=== PATIENT | female | born 1960 | race Caucasian/White ===

== ENCOUNTER 2016-11-14 20:40 | Emergency (ER) | payer BC, OTHER ==
[~2016-11-14] VITALS: Ht 165.1 cm; Wt 75.7 kg
[~2016-11-14 20:40] MED LIST: GLIP-115 PO; INSUINJ IJ; LISI2.5T47 PO; METF-489 PO; METO-281 PO; METO25TA3 PO; NITR400A5 TL; OMEP20CA5 OR; OXYB5TAB62 PO; REGULAR INSULIN; SIMV-8 PO; [UNRECOGNIZED DRUG - CODE] RE
[2016-11-14 21:25] LABS: Basophils # (auto) 0.1 uL; Eosinophils # (auto) 0.2 uL; Eosinophils % (auto) 2.6 % (0.0-7.0); Hematocrit 44.2 % (36.0-46.0); Hemoglobin 14.6 g/dL (12.2-16.2); Lymphocytes # (auto) 2.6 uL; Lymphocytes % (auto) 37.1 % (10.0-50.0); Mean Corpuscular Hemoglobin 29.6 pg (28.0-32.0); Mean Corpuscular Hgb Conc. 33.1 g/dL (32.0-36.0); Mean Corpuscular Volume 89.3 fL (80.0-100.0); Mean Platelet Volume 8.7 fL (7.4-10.4); Monocytes # (auto) 0.7 uL; Neutrophils # (auto) 3.4 uL; Neutrophils % (auto) 49.3 % (37.0-80.0); Platelet Count (auto) 355 10^3/uL (140-450); Red Cell Distribution Width 13.6 % (11.6-16.0); White Blood Cell 6.9 10^3/uL (4.4-10.8)
[2016-11-14 21:37] LABS: INR 0.95 (0.9-1.15); Partial Thromboplastin Time 24.2 sec (22.64-33.71); Prothrombin Time 10.3 sec (9.37-12.3)
[2016-11-14 21:50] LABS: Albumin 3.9 g/dL (3.4-5.0); BUN/Creatinine Ratio 22.1; Calcium 9.7 mg/dL (8.5-10.1); Potassium 4.4 mmol/L (3.5-5.1)
[2016-11-14 21:52] LABS: Bilirubin, Total 0.2 mg/dL (0.2-1.0); Total Protein 8.9 g/dL (6.4-8.2)
[2016-11-15 01:06] VITALS: BP 135/70
== END 2016-11-15 01:45 | disposition home or self-care (01) ==
LOC: ER 20:43
DX: S00.93XA Contusion of unspecified part of head, initial encounter (principal); I48.91 Unspecified atrial fibrillation; I13.0 Hypertensive heart and chronic kidney disease with heart failure and stage 1 through stage 4 chronic kidney disease, or unspecified chronic kidney disease; N18.9 Chronic kidney disease, unspecified; I50.9 Heart failure, unspecified; E78.5 Hyperlipidemia, unspecified; I25.2 Old myocardial infarction; Z86.73 Personal history of transient ischemic attack (TIA), and cerebral infarction without residual deficits; Z87.442 Personal history of urinary calculi; Z98.51 Tubal ligation status; Z95.1 Presence of aortocoronary bypass graft; Z95.0 Presence of cardiac pacemaker; Z98.61 Coronary angioplasty status; Z88.1 Allergy status to other antibiotic agents; Z88.6 Allergy status to analgesic agent; Z79.01 Long term (current) use of anticoagulants; W19.XXXA Unspecified fall, initial encounter; Y93.89 Activity, other specified; Y99.8 Other external cause status; Y92.89 Other specified places as the place of occurrence of the external cause
CPT/HCPCS: 36415; 70450; 80053; 85025; 85610; 85730; 93005

== ENCOUNTER 2018-05-19 22:44 | Emergency (ER) | payer BC, OTHER ==
[~2018-05-19] VITALS: Ht 165.1 cm; Wt 72.6 kg
[~2018-05-19 22:44] MED LIST changes: -METO25TA3 PO; +METO25TA4 PO; -OMEP20CA5 OR; +OMEP20CA74 OR; +OXYB5TAB24 PO; -OXYB5TAB62 PO
[2018-05-19] MEDS ORDERED: DEXTROSE (50%) 50ML SYRG IV ONE (23:00)
[2018-05-20 00:28] LABS: Basophils # (auto) 0.1 uL; Basophils % (auto) 0.7 % (0.0-2.0); Eosinophils # (auto) 0.1 uL; Eosinophils % (auto) 1.9 % (0.0-7.0); Hematocrit 42.7 % (36.0-46.0); Hemoglobin 13.8 g/dL (12.2-16.2); Lymphocytes # (auto) 1.6 uL; Lymphocytes % (auto) 20.7 % (10.0-50.0); Mean Corpuscular Hemoglobin 29.6 pg (28.0-32.0); Mean Corpuscular Hgb Conc. 32.3 g/dL (32.0-36.0); Mean Corpuscular Volume 91.6 fL (80.0-100.0); Monocytes # (auto) 0.7 uL; Monocytes % (auto) 8.6 % (0.0-12.0); Neutrophils # (auto) 5.2 uL; Neutrophils % (auto) 68.1 % (37.0-80.0); Nucleated Red Blood Cells % 0.1 %; Platelet Count (auto) 287 10^3/uL (140-450); Red Blood Cells 4.66 10^6/uL (4.0-5.20); Red Cell Distribution Width 13.2 % (11.8-14.3); White Blood Cell 7.6 10^3/uL (4.4-10.8)
[2018-05-20 00:46] LABS: Albumin 3.5 g/dL (3.4-5.0); BUN/Creatinine Ratio 20.8; Calcium 9.2 mg/dL (8.5-10.1); Potassium 3.5 mmol/L (3.5-5.1)
[2018-05-20 00:49] LABS: Bilirubin, Total 0.2 mg/dL (0.2-1.0); Total Protein 8.2 g/dL (6.4-8.2)
[2018-05-20 01:58] VITALS: BP 143/71
[2018-05-20 04:20] LABS: Urine Bacteria NONE SEEN /hpf (None Seen); Urine Blood Negative /uL (Negative); Urine Mucus FEW (None Seen); Urine Specific Gravity 1.022 (1.001-1.035); Urine WBC 1 /hpf (0 - 5)
== END 2018-05-20 03:08 | disposition home or self-care (01) ==
LOC: ER 22:44
DX: E11.649 Type 2 diabetes mellitus with hypoglycemia without coma (principal); I12.9 Hypertensive chronic kidney disease with stage 1 through stage 4 chronic kidney disease, or unspecified chronic kidney disease; E11.22 Type 2 diabetes mellitus with diabetic chronic kidney disease; N18.9 Chronic kidney disease, unspecified; I25.2 Old myocardial infarction; I48.91 Unspecified atrial fibrillation; Z86.73 Personal history of transient ischemic attack (TIA), and cerebral infarction without residual deficits; Z95.0 Presence of cardiac pacemaker; Z98.61 Coronary angioplasty status; Z79.4 Long term (current) use of insulin; Z88.6 Allergy status to analgesic agent; Z88.1 Allergy status to other antibiotic agents; Z98.51 Tubal ligation status
CPT/HCPCS: 36415; 71045; 80053; 81001; 82962; 85025; 96374

== ENCOUNTER 2018-07-12 11:15 | Inpatient (IN) | payer BC ==
[~2018-07-12] VITALS: Ht 167.6 cm; Wt 68.4 kg
[2018-07-12] MEDS ORDERED: SODIUM CHLORIDE 0.9% 1,000 ML IV ONE (11:19)
[2018-07-12] MEDS ORDERED: ONDANSETRON HCL 4 MG/2 ML VIAL IV ONE (11:30)
[2018-07-12] MEDS ORDERED: InsuLIN R (HUMAN) 100 UNITS in SODIUM CHL 0.9% 99 ML IV SCH ×2 (11:36→15:32)
[2018-07-12] MEDS ORDERED: DEXTROSE (50%) 50ML SYRG IV PRN ×3 (11:45→21:00)
[2018-07-12 12:11] LABS: Basophils # (auto) 0 uL; Eosinophils # (auto) 0 uL; Hemoglobin 15.6 g/dL (12.2-16.2); Lymphocytes # (auto) 0.9 uL; Monocytes # (auto) 0.7 uL; Nucleated Red Blood Cells % 0.1 %
[2018-07-12 12:13] LABS: Basophils % (auto) 0.2 % (0.0-2.0); Lymphocytes % (auto) 8.9 % (10.0-50.0); Mean Corpuscular Hgb Conc. 30.1 g/dL (32.0-36.0); Mean Corpuscular Volume 99.9 fL (80.0-100.0); Monocytes % (auto) 7.2 % (0.0-12.0); Neutrophils # (auto) 8.5 uL; Neutrophils % (auto) 83.7 % (37.0-80.0); Platelet Count (auto) 353 10^3/uL (140-450); Red Cell Distribution Width 14.6 % (11.8-14.3); White Blood Cell 10.1 10^3/uL (4.4-10.8)
[2018-07-12 12:29] LABS: Alanine Aminotransferase 47 U/L (13-56); Albumin 3.3 g/dL (3.4-5.0); Anion Gap 32 (5-15); Aspartate Aminotransferase 73 U/L (15-37); Blood Urea Nitrogen 49 mg/dL (7-18); Calcium 8.6 mg/dL (8.5-10.1); Chloride 94 mmol/L (98-107); GFR African American 32 mL/min; GFR Non-African American 27 mL/min; Magnesium 2.8 mg/dL (1.6-2.6); Potassium 5.1 mmol/L (3.5-5.1); Sodium 131 mmol/L (136-145)
[2018-07-12] MEDS: ACCU-CHEK COMFORT CURVE STRIP VI SCH ×5 (12:30→19:30)
[2018-07-12 12:32] LABS: Lactic Acid w/Reflex 2.4 mmol/L (0.4-2.0)
[2018-07-12 12:37] LABS: Alkaline Phosphatase 182 U/L (45-117); Bilirubin, Total 0.4 mg/dL (0.2-1.0); Total Protein 8.6 g/dL (6.4-8.2)
[2018-07-12 12:50] LABS: Urine WBC None Seen /hpf (0 - 5)
[2018-07-12 12:57] LABS: Carbon Dioxide 5 mmol/L (21-32); Glucose 698 mg/dL (74-106)
[2018-07-12 12:58] LABS: Urine Bacteria NONE SEEN /hpf (None Seen); Urine Blood Negative /uL (Negative); Urine Specific Gravity 1.021 (1.001-1.035)
[2018-07-12] MEDS: SODIUM CHLORIDE 0.9% 2,000 ML IV ONE ×2 (13:15→14:58)
[2018-07-12] MEDS ORDERED: LORazepam 0.5 MG TAB PO PRN (15:45)
[2018-07-12] MEDS ORDERED: MORPHINE SULFATE 10 MG/ML INJ 1ML SDV IV PRN ×2 (15:45)
[2018-07-12] MEDS ORDERED: ACETAMINOPHEN 500 MG TAB PO PRN (15:45)
[2018-07-12] MEDS ORDERED: NITROGLYCERIN 0.4 MG SL TAB SL PRN (15:45)
[2018-07-12] MEDS ORDERED: TEMAZEPAM 15 MG CAP PO PRN (15:45)
[2018-07-12] MEDS: INSULIN LANTUS (GLARGINE) 1 /0.01ml (100units/ml) SC SCH (16:11)
[2018-07-12] MEDS: SODIUM CHLORIDE 0.9% 1,000 ML IV SCH ×3 (16:15→21:15)
[2018-07-12 16:20] LABS: Calcium 8.1 mg/dL (8.5-10.1); Potassium 4.1 mmol/L (3.5-5.1)
[2018-07-12] MEDS ORDERED: SODIUM CHLORIDE 0.9% 1,000 ML IV SCH ×2 (19:32→21:32)
[2018-07-12] MEDS: PROMETHAZINE HCL 25 MG/ML 1ML IV PRN (19:40)
[2018-07-12] MEDS ORDERED: LEVOFLOXACIN 500MG 100 ML IV ONE (20:00)
[2018-07-12] MEDS: metroNIDAZOLE 500MG/100ML 100 ML IV SCH (22:36)
[2018-07-12 22:49] VITALS: BP 124/64
--- NOTE | 2018-07-12 23:00 | NUR ---
Telemetry admit from ER [facility] admitted to Telemetry unit after SBAR received. Patient oriented to ESTEBAN HARDY, RN primary RN, unit, room, bed, and unit policies regarding patient care and visiting hours. bed locked, low and 2x rails up. pt oriented to call light and is within reach. Patient now on continuous telemetry monitoring, tele box #38 and telemetry reading on arrival to unit is normal sinus rhythm at 85 bpm. Patient on room air with 99% O2 SATURATION. pt denied any pain. no s/s distress noted or expressed. weighed by bedscale and encouraged to call if they need something. All questions and concerns addressed, patient verbalized understanding. will continue to monitor.
[2018-07-12 23:13] VITALS: BP 124/64
[2018-07-13] MEDS: InsuLIN REG 1unit/0.01ml Soln (100units/ml) SC SCH ×6 (00:33→20:00)
[2018-07-13] MEDS: SODIUM CHLORIDE 0.9% 1,000 ML IV SCH ×3 (03:55→20:05)
[2018-07-13] MEDS: ACCU-CHEK COMFORT CURVE STRIP VI SCH ×6 (04:00→20:04)
[2018-07-13 05:36] VITALS: BP 111/58
[2018-07-13 06:11] LABS: Amylase 128 U/L (25-115); Lipase 236 U/L (73-393)
[2018-07-13] MEDS: metroNIDAZOLE 500MG/100ML 100 ML IV SCH (06:13)
[2018-07-13 08:00] VITALS: BP 125/61
[2018-07-13 08:25] VITALS: BP 125/61
--- NOTE | 2018-07-13 08:25 | NUR ---
Opening Shift Note Assumed care of patient, awake and alert and oriented X3. No S/S of distress/SOB or pain. Instructed on POC and to call for assist PRN, will continue to monitor for changes.
[2018-07-13] MEDS: PROMETHAZINE HCL 25 MG/ML 1ML IV PRN (08:38)
--- NOTE | 2018-07-13 10:30 | NUR ---
Dr Kohli made aware of blood culture results. Per Dr Kohli will take a look at chart. New order also received per Dr Kohli for [facility] diet. Will continue to monitor.
[2018-07-13] MEDS: PANTOPRAZOLE 40 MG TAB PO SCH (10:38)
[2018-07-13] MEDS: INSULIN LANTUS (GLARGINE) 1 /0.01ml (100units/ml) SC SCH (10:42)
[2018-07-13 12:00] VITALS: BP 127/66
[2018-07-13] MEDS: cefTRIAXone 1GM/50ML D5W 50 ML IV SCH (12:44)
[2018-07-13] MEDS ORDERED: AZITHROMYCIN 500MG/ 250ML 250 ML IV ONE (13:00)
--- NOTE | 2018-07-13 14:00 | NUR ---
Dr Kohli at bedside and speaking with patient's daughter. Per daughter the only medication patient takes at home is regular insulin, Dr Kohli aware.
[2018-07-13] MEDS: guaiFENesin-DM 100/10mg/5ml SYR PO PRN ×2 (14:05→18:14)
[2018-07-13 16:00] VITALS: BP 139/59
--- NOTE | 2018-07-13 18:55 | NUR ---
Patient care and report handed off to Nataly RAINEY.
--- NOTE | 2018-07-13 19:45 | NUR ---
Opening Shift Note: A&Ox4, resting in bed. Room air, pain level 0/10, and at baseline ambulates independently without assistive devices; currently SBA without assistive devices. Bed locked in lowest position, side rails up x2, and call light within reach for patient safety. IV 20 g in right upper arm IID inserted on 07/12/18 and left neck EJ 20 g inserted running NS at 100 ml/hr inserted on 07/12/18. Skin: generalized scabbing on bilateral arms and generalized bruising. Patient reports poor appetite and intermittent nausea; none at this time. POC discussed and questions answered. Will continue to round prn.
[2018-07-13] MEDS ORDERED: LEVOFLOXACIN 500MG 100 ML IV SCH (20:00)
--- NOTE | 2018-07-13 20:00 | NUR ---
Rapid influenza swab sent to lab via [employer] system.
[2018-07-13] MEDS: ATORVASTATIN 20 MG TAB PO SCH (20:05)
--- NOTE | 2018-07-13 20:06 | NUR ---
Page sent to inside sales professional hospitalist in regards to chloride level of 111 on 07/12/18. Patient currently has NS at 100 ml/hr. Order in AUG to notify physician of high chloride level. Will await possible order change.
[2018-07-13 23:00] VITALS: BP 125/66
[2018-07-14] MEDS: ACCU-CHEK COMFORT CURVE STRIP VI SCH ×6 (00:23→21:17)
[2018-07-14] MEDS: InsuLIN REG 1unit/0.01ml Soln (100units/ml) SC SCH ×6 (04:10→21:24)
[2018-07-14 05:00] VITALS: BP 130/71
[2018-07-14 05:40] LABS: Basophils # (auto) 0 uL; Basophils % (auto) 0.2 % (0.0-2.0); Eosinophils # (auto) 0 uL; Eosinophils % (auto) 0.1 % (0.0-7.0); Hematocrit 38.1 % (36.0-46.0); Lymphocytes # (auto) 1.6 uL; Mean Corpuscular Hemoglobin 30.6 pg (28.0-32.0); Mean Corpuscular Hgb Conc. 34.2 g/dL (32.0-36.0); Mean Corpuscular Volume 89.4 fL (80.0-100.0); Monocytes # (auto) 0.6 uL; Monocytes % (auto) 12.4 % (0.0-12.0); Neutrophils # (auto) 2.3 uL; Neutrophils % (auto) 51.3 % (37.0-80.0); Nucleated Red Blood Cells % 0.2 %; Platelet Count (auto) 216 10^3/uL (140-450); Red Blood Cells 4.27 10^6/uL (4.0-5.20); Red Cell Distribution Width 13.3 % (11.8-14.3); White Blood Cell 4.5 10^3/uL (4.4-10.8)
[2018-07-14 05:58] LABS: Anion Gap 8 (5-15); Blood Urea Nitrogen 11 mg/dL (7-18); Carbon Dioxide 23 mmol/L (21-32); Chloride 111 mmol/L (98-107); Glucose 162 mg/dL (74-106); Potassium 3.5 mmol/L (3.5-5.1); Sodium 142 mmol/L (136-145)
[2018-07-14 06:01] LABS: BUN/Creatinine Ratio 10.2; GFR Non-African American 56 mL/min
[2018-07-14 06:05] LABS: GFR African American > 60 mL/min
--- NOTE | 2018-07-14 07:15 | NUR ---
Open Shift Note Received report on patient, awake and sitting up in bed. Patient shows no signs of distress at this time, but currently coughing. Discussed POC and PRN cough medication with patient. Bed in lowest locked position, side rails up x2, and call light within reach. Will continue to monitor.
[2018-07-14] MEDS: cefTRIAXone 1GM/50ML D5W 50 ML IV SCH (08:11)
[2018-07-14] MEDS: guaiFENesin-DM 100/10mg/5ml SYR PO PRN ×2 (08:21→21:21)
[2018-07-14 09:00] VITALS: BP 132/73
[2018-07-14] MEDS: ASPirin 81 mg TAB PO SCH (09:54)
[2018-07-14] MEDS: INSULIN LANTUS (GLARGINE) 1 /0.01ml (100units/ml) SC SCH (09:54)
[2018-07-14] MEDS: PANTOPRAZOLE 40 MG TAB PO SCH (09:54)
[2018-07-14] MEDS ORDERED: AZITHROMYCIN 500MG/ 250ML 250 ML IV SCH (10:00)
[2018-07-14 13:00] VITALS: BP 145/76
[2018-07-14] MEDS ORDERED: DEXTROSE (50%) 50ML SYRG IV PRN (13:00)
--- NOTE | 2018-07-14 13:00 | NUR ---
Dr Bowling at Bedside Dr Bowling at patient bedside.
[2018-07-14 14:20] VITALS: BP 132/73
[2018-07-14] MEDS: ALBUTEROL SULF 2.5 MG/0.5ML(0.5%) NEB SOLN NEB SCH ×3 (14:40→22:07)
[2018-07-14 17:00] VITALS: BP 126/63
--- NOTE | 2018-07-14 19:03 | NUR ---
End of Shift Endorsed care to [facility] nurse Nati. Patient shows no signs of distress at this time. Bed in lowest locked position, side rails up x2, and call light within reach.
--- NOTE | 2018-07-14 19:39 | NUR ---
Opening Shift Note Assumed care of patient, awake and alert. No S/S of distress/SOB or pain. Instructed on POC and to call for assist PRN, will continue to monitor for changes Q1hr and PRN.
[2018-07-14] MEDS: ATORVASTATIN 20 MG TAB PO SCH (21:16)
[2018-07-14 22:36] VITALS: BP 121/49
[2018-07-15] MEDS: ALBUTEROL SULF 2.5 MG/0.5ML(0.5%) NEB SOLN NEB SCH ×6 (02:00→22:28)
--- NOTE | 2018-07-15 02:12 | NUR ---
RT NOTE PT REQUESTED NOT TO BE WAKEN UP FOR 0200 TX.
[2018-07-15 05:00] VITALS: BP 141/78
[2018-07-15 05:53] LABS: Basophils # (auto) 0 uL; Basophils % (auto) 0.6 % (0.0-2.0); Eosinophils # (auto) 0 uL; Eosinophils % (auto) 0.2 % (0.0-7.0); Hematocrit 39.4 % (36.0-46.0); Hemoglobin 13.1 g/dL (12.2-16.2); Lymphocytes # (auto) 1.7 uL; Lymphocytes % (auto) 26.3 % (10.0-50.0); Mean Corpuscular Hemoglobin 29.7 pg (28.0-32.0); Mean Corpuscular Hgb Conc. 33.4 g/dL (32.0-36.0); Monocytes # (auto) 0.7 uL; Monocytes % (auto) 11.3 % (0.0-12.0); Neutrophils % (auto) 61.6 % (37.0-80.0); Platelet Count (auto) 201 10^3/uL (140-450); Red Blood Cells 4.43 10^6/uL (4.0-5.20); White Blood Cell 6.4 10^3/uL (4.4-10.8)
[2018-07-15] MEDS: InsuLIN REG 1unit/0.01ml Soln (100units/ml) SC SCH ×4 (06:06→21:40)
[2018-07-15] MEDS: ACCU-CHEK COMFORT CURVE STRIP VI SCH ×4 (06:06→21:40)
[2018-07-15 06:12] LABS: Anion Gap 11 (5-15); BUN/Creatinine Ratio 10.7; Blood Urea Nitrogen 9 mg/dL (7-18); Calcium 7.9 mg/dL (8.5-10.1); Carbon Dioxide 21 mmol/L (21-32); Chloride 107 mmol/L (98-107); GFR African American > 60 mL/min; GFR Non-African American > 60 mL/min; Glucose 152 mg/dL (74-106); Sodium 139 mmol/L (136-145)
[2018-07-15 06:21] LABS: Potassium 2.9 mmol/L (3.5-5.1)
--- NOTE | 2018-07-15 06:24 | NUR ---
Called/paged Umer Gunn called re:patient pot.[email or web address] . Waiting for call back. Continue care.
[2018-07-15] MEDS: traMADol HCL 50 MG TAB PO PRN ×3 (06:52→21:47)
--- NOTE | 2018-07-15 06:54 | NUR ---
REFUSED ULTRAM WHEN OFERRED
--- NOTE | 2018-07-15 06:57 | NUR ---
Called/paged Umer Gunn called re:pot.[id number] . Waiting for call back. Continue care.
--- NOTE | 2018-07-15 06:59 | NUR ---
The order of pot. is [id number]. x one.
--- NOTE | 2018-07-15 06:59 | NUR ---
returned call Umer Gunn returned call, updated on patient status and reason for call, orders received of [id number].p.o. x one. Continue care.
[2018-07-15] MEDS ORDERED: POTASSIUM CHL 20 Meq TABLET PO ONE (07:00)
--- NOTE | 2018-07-15 07:15 | NUR ---
OPENING SHIFT NOTE ASSUMED CARE OF PATIENT FROM DESK MANAGER BRIGID HERNANDEZ. PATIENT HAS NO S/S OF DISTRESS/SOB OR PAIN. INSTRUCTED PATIENT ON POC, PATIENT VERBALIZED UNDERSTANDING. BED IS IN LOWEST POSITION WITH SIDE RAILS RAISED X2, BED WHEELS LOCKED, AND CALL LIGHT WITHIN REACH. WILL CONTINUE TO MONITOR
--- NOTE | 2018-07-15 07:25 | NUR ---
Report given to Charley Schultz to assume care, patient is not in distress.
[2018-07-15 08:00] VITALS: BP 140/68
[2018-07-15 09:00] VITALS: BP 140/68
--- NOTE | 2018-07-15 09:15 | NUR ---
RECEIVED CALL FROM PHARMACY. PHARMACIST WOULD LIKE ROCEPHIN AND AZITHROMYCIN TO BE CHANGED TO LEVAQUIN. WILL INFORM MD WAKEFIELD.
[2018-07-15] MEDS: cefTRIAXone 1GM/50ML D5W 50 ML IV SCH (09:23)
[2018-07-15] MEDS: ASPirin 81 mg TAB PO SCH (09:24)
[2018-07-15] MEDS: PANTOPRAZOLE 40 MG TAB PO SCH (09:24)
[2018-07-15] MEDS: INSULIN LANTUS (GLARGINE) 1 /0.01ml (100units/ml) SC SCH (09:30)
--- NOTE | 2018-07-15 09:35 | NUR ---
MD WAKEFIELD AT BEDSIDE. UPDATED MD ON PATIENT'S STATUS, MD IS AWARE. INFORMED MD PER PATIENT SHE HAS HAD DIARRHEA FOR THE PAST 3 DAYS. MD IS AWARE AND ORDERED C.DIFF STOOL SAMPLE. ALSO INFORMED MD, PHARMACIST WOULD LIKE BOTH ANTIBIOTICS TO BE DISCONTINUED AND CHANGED TO LEVAQUIN. MD WOULD LOOK INTO IT. WILL FOLLOW THROUGH WITH NEW ORDERS
[2018-07-15] MEDS: LEVOFLOXACIN 500MG 100 ML IV SCH (11:23)
[2018-07-15 13:00] VITALS: BP 138/69
[2018-07-15] MEDS: MAGNESIUM SULFATE 1GM/100ML 100 ML IV SCH ×2 (13:42→15:22)
--- NOTE | 2018-07-15 14:00 | NUR ---
C.DIFF STOOL SAMPLE SENT TO LAB
[2018-07-15] MEDS ORDERED: MAGNESIUM SULFATE 1GM/100ML 100 ML IV ONE (15:21)
[2018-07-15 17:00] VITALS: BP 126/55
--- NOTE | 2018-07-15 19:26 | NUR ---
CLOSING SHIFT NOTE ENDORSED CARE TO MANAGER NON PROFIT BRIGID HERNANDEZ. PATIENT HAS NO S/S OF DISTRESS/SOB OR PAIN AT THIS TIME.
[2018-07-15] MEDS: ATORVASTATIN 20 MG TAB PO SCH (21:37)
[2018-07-15] MEDS: guaiFENesin-DM 100/10mg/5ml SYR PO PRN (21:38)
[2018-07-15 22:00] VITALS: BP 122/60
[2018-07-16] MEDS: ALBUTEROL SULF 2.5 MG/0.5ML(0.5%) NEB SOLN NEB SCH ×6 (02:00→22:26)
--- NOTE | 2018-07-16 02:02 | NUR ---
PT REFUSED MED NEB TX A THIS TIME. PT REQUESTED TO NOT BE WOKEN UP FOR SCHEDULED TX. NO SIGNS OF SHORTNESS OF BREATH. WILL CONTINUE WITH NEXT SCHEDULED TX.
[2018-07-16 04:55] VITALS: BP 106/57
[2018-07-16] MEDS: ACCU-CHEK COMFORT CURVE STRIP VI SCH ×4 (06:31→21:58)
[2018-07-16] MEDS: InsuLIN REG 1unit/0.01ml Soln (100units/ml) SC SCH ×4 (06:31→21:58)
--- NOTE | 2018-07-16 07:24 | NUR ---
Report given to Charley Grimm to assume care, patient is resting no discomfort.
--- NOTE | 2018-07-16 07:30 | NUR ---
Opening Shift Note Assumed care of patient, awake, alert, and oriented x4. No S/S of distress/SOB or pain. No IV access noted at this time. Bed locked and in lowest position and call light is within reach. Instructed on POC and to call for assist PRN, and patient verbalized understanding. Will continue to monitor for changes Q1hr and PRN.
[2018-07-16 09:00] VITALS: BP 125/61
--- NOTE | 2018-07-16 09:00 | NUR ---
IV insertion IV access obtained, via clean sterile technique by inserting 22 gauge catheter at right forearm after 2 attempt(s). IV secured properly. No trauma to site. Patient tolerated procedure well.
[2018-07-16] MEDS: INSULIN LANTUS (GLARGINE) 1 /0.01ml (100units/ml) SC SCH (10:00)
[2018-07-16] MEDS: PANTOPRAZOLE 40 MG TAB PO SCH (10:40)
[2018-07-16] MEDS: LEVOFLOXACIN 500MG 100 ML IV SCH (10:40)
[2018-07-16] MEDS: ASPirin 81 mg TAB PO SCH (10:40)
--- NOTE | 2018-07-16 11:00 | NUR ---
DR. PALENCIA AT BEDSIDE.
--- NOTE | 2018-07-16 11:47 | NUR ---
NUTRITION CONSULT/ASSESSMENT NOTES Please refer to link notes of nutrition screen form filed under the intervention section of the plan of care for further details. Est. Needs: 1700 kcal to 2050 kcal (25-30 kcal/kgBW), 69 gms to 82 gms pro (1.0-1.2 gms/kgBW). Will continue to monitor pertinent labs and reassess nutrient needs prn Thank you for this consult. Addendum: 07/16/18 at [address] Amended: Links added.
[2018-07-16 12:03] LABS: Anion Gap 9 (5-15); BUN/Creatinine Ratio 11.4; Blood Urea Nitrogen 10 mg/dL (7-18); Calcium 8.4 mg/dL (8.5-10.1); Carbon Dioxide 22 mmol/L (21-32); Chloride 102 mmol/L (98-107); GFR African American > 60 mL/min; GFR Non-African American > 60 mL/min; Glucose 321 mg/dL (74-106); Magnesium 1.9 mg/dL (1.6-2.6); Potassium 3.7 mmol/L (3.5-5.1); Sodium 133 mmol/L (136-145)
[2018-07-16 13:00] VITALS: BP 120/69
[2018-07-16 17:00] VITALS: BP 132/64
[2018-07-16] MEDS: Glucerna Carbsteady SHAKE Stawberry 8oz PO SCH (17:51)
--- NOTE | 2018-07-16 20:12 | NUR ---
RECEIVED PT FROM DAY RN POC REVIEWED
[2018-07-16] MEDS: ATORVASTATIN 20 MG TAB PO SCH (21:56)
[2018-07-16] MEDS: traMADol HCL 50 MG TAB PO PRN (21:57)
[2018-07-16 22:00] VITALS: BP 137/68
--- NOTE | 2018-07-17 02:21 | NUR ---
PT HAD REQUESTED NOT TO BE WOKEN UP IF SHE WAS SLEEPING AT THE TIME OF HER 0200 SCHEDULED TREATMENT. WHEN I ENTERED THE PTS ROOM SHE WAS INDEED SLEEPING. NO DISTRESS NOTED. WILL CONT. TO TREAT ORDERED.
--- NOTE | 2018-07-17 02:30 | NUR ---
RESTING WITH EYES CLOSED NO C/O DISCOMFORT CALL LIGHT WITHIN REACH
[2018-07-17 04:00] VITALS: BP 124/73
[2018-07-17] MEDS: ALBUTEROL SULF 2.5 MG/0.5ML(0.5%) NEB SOLN NEB SCH ×3 (06:14→13:56)
[2018-07-17] MEDS: ACCU-CHEK COMFORT CURVE STRIP VI SCH ×2 (06:57→11:29)
[2018-07-17] MEDS: InsuLIN REG 1unit/0.01ml Soln (100units/ml) SC SCH ×2 (06:57→11:59)
--- NOTE | 2018-07-17 07:00 | NUR ---
REPORT GIVEN TO AM NURSE POC REVIEWED
[2018-07-17 07:37] VITALS: BP 124/73
[2018-07-17] MEDS: Glucerna Carbsteady SHAKE Stawberry 8oz PO SCH (08:00)
[2018-07-17 08:30] VITALS: BP 130/73
[2018-07-17] MEDS: LEVOFLOXACIN 500MG 100 ML IV SCH (09:43)
[2018-07-17] MEDS: PANTOPRAZOLE 40 MG TAB PO SCH (09:43)
[2018-07-17] MEDS: ASPirin 81 mg TAB PO SCH (09:43)
--- NOTE | 2018-07-17 10:59 | NUR ---
Hospitalist at bedside MD Kohli at bedside, aware of patients status. New orders received for d/c home today. Will d/c as ordered and give prescription.
[2018-07-17] MEDS: INSULIN LANTUS (GLARGINE) 1 /0.01ml (100units/ml) SC SCH (11:28)
[2018-07-17 12:30] VITALS: BP 124/61
--- NOTE | 2018-07-17 13:45 | NUR ---
Discharge instructions given as ordered. Encourage to follow up with PMD as instructed. All questions and concerns addressed. Patient verbalized understanding. Medication reconciliation form completed and copy given to patient. New prescription given to patient and educated on use and side effects. Diabetic education given to patient by Maricarmen Cherry rn Patient verbalized understanding. IV removed with catheter intact, pressure dressing applied. Patient awaiting her daughter to pick her up. No distress noted at this time
--- NOTE | 2018-07-17 14:37 | NUR ---
Patient ambulated to vehicle via with all personal belongings, accompanied by daughter. No distress noted at time of departure, sob or pain.
== END 2018-07-17 14:38 | disposition home or self-care (01) | DRG 438 ==
LOC: EDBD 11:15 → ER 11:22 → TELE 15:36 → TELE-CENTR 21:55 → CENTRAL 07-16 11:50
PROVIDERS: ADMIT Internal Medicine; ATTEND Internal Medicine
DX: K85.90 Acute pancreatitis without necrosis or infection, unspecified (principal); E11.10 Type 2 diabetes mellitus with ketoacidosis without coma; J18.9 Pneumonia, unspecified organism; N17.0 Acute kidney failure with tubular necrosis; J44.0 Chronic obstructive pulmonary disease with (acute) lower respiratory infection; R78.81 Bacteremia; E11.21 Type 2 diabetes mellitus with diabetic nephropathy; E11.22 Type 2 diabetes mellitus with diabetic chronic kidney disease; I12.9 Hypertensive chronic kidney disease with stage 1 through stage 4 chronic kidney disease, or unspecified chronic kidney disease; E78.5 Hyperlipidemia, unspecified; I70.0 Atherosclerosis of aorta; I08.0 Rheumatic disorders of both mitral and aortic valves; I25.10 Atherosclerotic heart disease of native coronary artery without angina pectoris; I48.0 Paroxysmal atrial fibrillation; E86.0 Dehydration; N18.3 Chronic kidney disease, stage 3 (moderate); Z80.1 Family history of malignant neoplasm of trachea, bronchus and lung; I25.2 Old myocardial infarction; Z80.3 Family history of malignant neoplasm of breast; Z80.41 Family history of malignant neoplasm of ovary; Z80.8 Family history of malignant neoplasm of other organs or systems; Z81.8 Family history of other mental and behavioral disorders; Z82.0 Family history of epilepsy and other diseases of the nervous system; Z82.3 Family history of stroke; Z82.49 Family history of ischemic heart disease and other diseases of the circulatory system; Z82.5 Family history of asthma and other chronic lower respiratory diseases; Z82.62 Family history of osteoporosis; Z83.3 Family history of diabetes mellitus; Z87.442 Personal history of urinary calculi; Z95.1 Presence of aortocoronary bypass graft; Z95.810 Presence of automatic (implantable) cardiac defibrillator; Z88.5 Allergy status to narcotic agent; Z79.82 Long term (current) use of aspirin; Z79.84 Long term (current) use of oral hypoglycemic drugs; Z79.899 Other long term (current) drug therapy; Z98.51 Tubal ligation status; Z82.61 Family history of arthritis; Z83.42 Family history of familial hypercholesterolemia; Z80.42 Family history of malignant neoplasm of prostate; Z83.49 Family history of other endocrine, nutritional and metabolic diseases
CPT/HCPCS: 36415; 36600; 71045; 71046; 80048; 80053; 81001; 82010; 82150; 82805; 82962; 83036; 83605; 83690; 83735; 84484; 85025; 87040; 87077; 87186; 87493; 87804; 93005; 93306; 94640; 96360; 97116; 97163; 97530; 99291; A6257; G0378; J0696; J1815; J1956; J2405; J3490

== ENCOUNTER 2018-08-18 16:37 | Emergency (ER) | payer BC ==
[~2018-08-18] VITALS: Ht 165.1 cm; Wt 63.5 kg
[2018-08-18 16:51] VITALS: BP 167/78
[2018-08-18] MEDS ORDERED: KETOROLAC TROMETH 60MG/2ML VIAL IM ONE (17:45)
[2018-08-18] MEDS ORDERED: HYDROcodone-ACET 7.5/325MG TAB PO ONE (17:45)
[2018-08-18] MEDS ORDERED: cefTRIAXone SOD 1,000 MG VL ONE (18:53)
== END 2018-08-18 19:04 | disposition home or self-care (01) ==
LOC: ER 16:40
DX: M43.16 Spondylolisthesis, lumbar region (principal); M51.16 Intervertebral disc disorders with radiculopathy, lumbar region; E11.9 Type 2 diabetes mellitus without complications; E78.5 Hyperlipidemia, unspecified; Z98.51 Tubal ligation status; Z98.61 Coronary angioplasty status; Z95.0 Presence of cardiac pacemaker; Z79.4 Long term (current) use of insulin; Z79.899 Other long term (current) drug therapy; Z88.6 Allergy status to analgesic agent; Z88.1 Allergy status to other antibiotic agents
CPT/HCPCS: 72100; 96372; 99283; J0696; J1885

== ENCOUNTER 2019-01-06 23:57 | Inpatient (IN) | payer BC ==
[~2019-01-06] VITALS: Ht 165.1 cm; Wt 66.9 kg
[2019-01-07] MEDS ORDERED: SODIUM CHLORIDE 0.9% 1,000 ML IVB ONE (00:40)
[2019-01-07] MEDS ORDERED: InsuLIN REG 1unit/0.01ml Soln (100units/ml) IV ONE (00:45)
[2019-01-07] MEDS ORDERED: ONDANSETRON HCL 4 MG/2 ML VIAL IV ONE (00:45)
[2019-01-07 01:14] LABS: Basophils # (auto) 0.1 uL; Basophils % (auto) 0.5 % (0.0-2.0); Eosinophils # (auto) 0 uL; Eosinophils % (auto) 0.1 % (0.0-7.0); Hematocrit 45.6 % (36.0-46.0); Hemoglobin 14.9 g/dL (12.2-16.2); Lymphocytes # (auto) 2.6 uL; Lymphocytes % (auto) 19.1 % (10.0-50.0); Mean Corpuscular Hemoglobin 30.7 pg (28.0-32.0); Mean Corpuscular Hgb Conc. 32.7 g/dL (32.0-36.0); Mean Corpuscular Volume 93.8 fL (80.0-100.0); Monocytes # (auto) 0.6 uL; Monocytes % (auto) 4.5 % (0.0-12.0); Neutrophils # (auto) 10.3 uL; Neutrophils % (auto) 75.8 % (37.0-80.0); Nucleated Red Blood Cells % 0.1 %; Platelet Count (auto) 401 10^3/uL (140-450); Red Blood Cells 4.86 10^6/uL (4.0-5.20); Red Cell Distribution Width 13.7 % (11.8-14.3); White Blood Cell 13.6 10^3/uL (4.4-10.8)
[2019-01-07 01:17] LABS: Alanine Aminotransferase 48 U/L (13-56); Anion Gap 26 (5-15); Aspartate Aminotransferase 37 U/L (15-37); BUN/Creatinine Ratio 16.5; Blood Urea Nitrogen 37 mg/dL (7-18); Carbon Dioxide 12 mmol/L (21-32); Chloride 98 mmol/L (98-107); GFR African American 29 mL/min; GFR Non-African American 24 mL/min; Glucose 386 mg/dL (74-106); Potassium 4.3 mmol/L (3.5-5.1); Sodium 136 mmol/L (136-145)
[2019-01-07 01:18] LABS: Albumin 3.7 g/dL (3.4-5.0); Calcium 9.5 mg/dL (8.5-10.1)
[2019-01-07 01:21] LABS: Alkaline Phosphatase 156 U/L (45-117); Bilirubin, Total 0.5 mg/dL (0.2-1.0); Total Protein 8.6 g/dL (6.4-8.2)
[2019-01-07 01:55] LABS: Magnesium 2.2 mg/dL (1.6-2.6)
[2019-01-07 02:02] LABS: INR < 0.93 (0.9-1.15); Partial Thromboplastin Time 21.2 sec (23.64-32.05)
[2019-01-07] MEDS ORDERED: InsuLIN R (HUMAN) 100 UNITS in SODIUM CHL 0.9% 99 ML IV SCH (04:33)
[2019-01-07] MEDS ORDERED: NITROGLYCERIN 0.4 MG SL TAB SL PRN (04:45)
[2019-01-07] MEDS ORDERED: ONDANSETRON HCL 4 MG/2 ML VIAL IV PRN (04:45)
[2019-01-07] MEDS ORDERED: DEXTROSE (50%) 50ML SYRG IV PRN (04:45)
[2019-01-07] MEDS ORDERED: TEMAZEPAM 15 MG CAP PO PRN (04:45)
[2019-01-07] MEDS ORDERED: MORPHINE SULF INJ 2 MG/ML SYRINGE 1ML IV PRN (04:45)
[2019-01-07 04:53] LABS: Urine Bacteria FEW /hpf (None Seen); Urine Blood Negative /uL (Negative); Urine Specific Gravity 1.024 (1.001-1.035); Urine WBC 2 /hpf (0 - 5)
[2019-01-07] MEDS: SODIUM CHLORIDE 0.9% 1,000 ML IV SCH ×2 (05:02→06:38)
[2019-01-07] MEDS ORDERED: InsuLIN REG 1unit/0.01ml Soln (100units/ml) ONE (05:16)
[2019-01-07] MEDS: ACCU-CHEK COMFORT CURVE STRIP VI SCH ×15 (05:38→22:30)
[2019-01-07 06:16] LABS: Sodium 136 mmol/L (136-145)
[2019-01-07 06:17] LABS: Anion Gap 23 (5-15); BUN/Creatinine Ratio 18.4; Blood Urea Nitrogen 37 mg/dL (7-18); Calcium 8.7 mg/dL (8.5-10.1); Carbon Dioxide 12 mmol/L (21-32); Chloride 101 mmol/L (98-107); GFR African American 33 mL/min; GFR Non-African American 27 mL/min; Glucose 344 mg/dL (74-106)
[2019-01-07] MEDS ORDERED: SODIUM CHLORIDE 0.9% 1,000 ML IV SCH ×2 (08:33→10:33)
[2019-01-07] MEDS ORDERED: LISINOPRIL 5 MG TAB PO SCH (10:00)
[2019-01-07] MEDS: METOPROLOL TARTRATE 25 MG TAB PO SCH ×2 (10:22→22:00)
[2019-01-07] MEDS: FAMOTIDINE 20 MG TAB PO SCH (10:24)
[2019-01-07 11:11] LABS: Albumin 2.7 g/dL (3.4-5.0); Calcium 7.1 mg/dL (8.5-10.1); Potassium 4.5 mmol/L (3.5-5.1)
[2019-01-07 11:17] LABS: BUN/Creatinine Ratio 21.7; Bilirubin, Total 0.3 mg/dL (0.2-1.0); Total Protein 6.4 g/dL (6.4-8.2)
[2019-01-07] MEDS ORDERED: INSULIN LANTUS (GLARGINE) 1 /0.01ml (100units/ml) SC ONE (12:30)
[2019-01-07] MEDS: InsuLIN REG 1unit/0.01ml Soln (100units/ml) SC SCH ×3 (12:32→20:00)
[2019-01-07] MEDS: D5W/SOD CHL 0.45%/KCL 20MEQ 1,000 ML IV SCH (13:19)
[2019-01-07 20:05] LABS: BUN/Creatinine Ratio 19.1; Calcium 8.5 mg/dL (8.5-10.1); Potassium 4.8 mmol/L (3.5-5.1)
[2019-01-07] MEDS ORDERED: ATORVASTATIN 20 MG TAB PO SCH (22:00)
[2019-01-07] MEDS: INSULIN LANTUS (GLARGINE) 1 /0.01ml (100units/ml) SC SCH (22:28)
--- NOTE | 2019-01-07 22:47 | NUR ---
PATIENT ADMITTED TO UNIT Patient admitted from ED to unit via stretcher. Patient able to ambulate with steady gait from door to bed. Patient is A&O X's 4 with no s/s of distress noted. Patient reports no pain. Educated patient on POC and to use call light when in need of assistance. Patient oriented to unit (call lights/tv/phone/policies/lights) Patient verbalized understanding. Bed is in lowest/locked position with side rails up X's 2 and call light is within reach of patient. Wound photos taken. Will continue to monitor for changes and round hourly/PRN.
[2019-01-08] VITALS: BP 127/73
--- NOTE | 2019-01-08 | NUR ---
HOME MEDS Patient reports only taking regular insulin at home. She says that she has a bad memory about other things and usually her sister will answer these questions for her. Requested that her sister brings in medication list.
[2019-01-08 00:04] LABS: Anion Gap 13 (5-15); BUN/Creatinine Ratio 16.1; Blood Urea Nitrogen 26 mg/dL (7-18); Calcium 8.4 mg/dL (8.5-10.1); Carbon Dioxide 18 mmol/L (21-32); Chloride 114 mmol/L (98-107); GFR African American 42 mL/min; GFR Non-African American 35 mL/min; Glucose 84 mg/dL (74-106); Potassium 4.2 mmol/L (3.5-5.1); Sodium 145 mmol/L (136-145)
[2019-01-08] MEDS: D5W/SOD CHL 0.45%/KCL 20MEQ 1,000 ML IV SCH ×2 (00:07→10:48)
[2019-01-08] MEDS: ACCU-CHEK COMFORT CURVE STRIP VI SCH ×10 (00:08→16:06)
[2019-01-08 00:12] VITALS: BP 127/73
[2019-01-08] MEDS: InsuLIN REG 1unit/0.01ml Soln (100units/ml) SC SCH ×5 (03:43→16:00)
[2019-01-08 04:30] VITALS: BP 111/60
[2019-01-08 08:56] VITALS: BP 122/69
[2019-01-08] MEDS: FAMOTIDINE 20 MG TAB PO SCH (10:47)
[2019-01-08] MEDS: METOPROLOL TARTRATE 25 MG TAB PO SCH (10:47)
[2019-01-08] MEDS: INSULIN LANTUS (GLARGINE) 1 /0.01ml (100units/ml) SC SCH (10:48)
--- NOTE | 2019-01-08 10:58 | NUR ---
Patient requesting pain meds pt c/o chronic right hip pain and requesting pain meds. MD Joel notified. Awaiting order for Tylenol. Cont care
--- NOTE | 2019-01-08 11:30 | NUR ---
Regarding pain patient refused to take tylenol. Patient states tylenol does not work for her. She states she will ambulate and that helps relieve her chronic pain. No distress noted or sob. Cont care
[2019-01-08 11:40] LABS: Basophils # (auto) 0.1 uL; Eosinophils # (auto) 0 uL; Eosinophils % (auto) 0.6 % (0.0-7.0); Hematocrit 42.1 % (36.0-46.0); Hemoglobin 13.7 g/dL (12.2-16.2); Lymphocytes # (auto) 1.4 uL; Lymphocytes % (auto) 22.7 % (10.0-50.0); Mean Corpuscular Hemoglobin 30.4 pg (28.0-32.0); Mean Corpuscular Hgb Conc. 32.5 g/dL (32.0-36.0); Mean Corpuscular Volume 93.5 fL (80.0-100.0); Monocytes # (auto) 0.4 uL; Monocytes % (auto) 7.2 % (0.0-12.0); Neutrophils # (auto) 4.2 uL; Neutrophils % (auto) 68.5 % (37.0-80.0); Nucleated Red Blood Cells % 0.1 %; Platelet Count (auto) 284 10^3/uL (140-450); White Blood Cell 6.1 10^3/uL (4.4-10.8)
[2019-01-08 12:09] LABS: Potassium 4.4 mmol/L (3.5-5.1)
[2019-01-08 12:15] LABS: Albumin 3.2 g/dL (3.4-5.0); BUN/Creatinine Ratio 14.1; Bilirubin, Total 0.3 mg/dL (0.2-1.0); Calcium 9.2 mg/dL (8.5-10.1); Total Protein 7.6 g/dL (6.4-8.2)
[2019-01-08 12:32] VITALS: BP 122/59
--- NOTE | 2019-01-08 13:17 | NUR ---
Spoke to Hospitalist MD Joel aware of patient's status, abnormal labs, vs. Awaiting new orders for discharge after [facility]. Patient aware and agrees
--- NOTE | 2019-01-08 18:17 | NUR ---
Discharge instructions given as ordered to patient, and after patient's consent, family at bedside including spouse/caregiver and granddaughter. Encourage to follow up with PMD and specialists as instructed. All questions and concerns addressed. Patient and caregiver verbalized understanding. Medication reconciliation form completed and copy given to patient. Lantus delivered to bedside as ordered by [facility] and patient, spouse and granddaughter instructed on use, s/e, and administration they verbalized understanding and return demonstration. IV removed with catheter intact, pressure dressing applied. Telemetry unit returned to [facility]. Patient decided to ambulate to vehicle and refused wheelchair. Pt ambulated in no distress, sob or pain with all personal belongings, accompanied by family members. No distress noted at time of departure.
== END 2019-01-08 18:28 | disposition home or self-care (01) | DRG 637 ==
LOC: ER 23:59 → TELE 01-07 → TELE-WESTW 01-07 22:48
PROVIDERS: ADMIT Nurse Practitioner; ATTEND Internal Medicine Nephrology
DX: E11.10 Type 2 diabetes mellitus with ketoacidosis without coma (principal); N17.0 Acute kidney failure with tubular necrosis; E78.5 Hyperlipidemia, unspecified; E86.0 Dehydration; I10 Essential (primary) hypertension; I25.10 Atherosclerotic heart disease of native coronary artery without angina pectoris; Z79.4 Long term (current) use of insulin; Z80.1 Family history of malignant neoplasm of trachea, bronchus and lung; Z80.3 Family history of malignant neoplasm of breast; Z80.8 Family history of malignant neoplasm of other organs or systems; Z80.41 Family history of malignant neoplasm of ovary; Z81.8 Family history of other mental and behavioral disorders; Z82.0 Family history of epilepsy and other diseases of the nervous system; Z82.5 Family history of asthma and other chronic lower respiratory diseases; Z83.3 Family history of diabetes mellitus; Z87.442 Personal history of urinary calculi; Z82.62 Family history of osteoporosis; Z82.49 Family history of ischemic heart disease and other diseases of the circulatory system; Z91.19 Patient's noncompliance with other medical treatment and regimen; Z95.1 Presence of aortocoronary bypass graft; Z82.3 Family history of stroke; M54.9 Dorsalgia, unspecified; Z88.5 Allergy status to narcotic agent; Z88.1 Allergy status to other antibiotic agents; Z95.810 Presence of automatic (implantable) cardiac defibrillator
CPT/HCPCS: 36415; 36600; 71045; 80048; 80053; 81001; 82010; 82805; 82962; 83036; 83690; 83735; 85025; 85610; 85730; 93005; 94761; 96361; 96365; 96372; 96375; G0378; J1815; J2405

== ENCOUNTER 2019-04-16 12:47 | Emergency (ER) | payer BC ==
[~2019-04-16] VITALS: Ht 165.1 cm; Wt 63.5 kg
[~2019-04-16 12:47] MED LIST changes: -GLIP-115 PO; +GLIP5TAB12 PO; -LISI2.5T47 PO; -METF-489 PO; -METO-281 PO; +METO25TA36 PO; -METO25TA4 PO; -NITR400A5 TL; -OMEP20CA74 OR; -OXYB5TAB24 PO
[2019-04-16 13:23] LABS: Basophils # (auto) 0 uL; Basophils % (auto) 0.5 % (0.0-2.0); Eosinophils # (auto) 0 uL; Eosinophils % (auto) 0.4 % (0.0-7.0); Hematocrit 40.2 % (36.0-46.0); Hemoglobin 13.3 g/dL (12.2-16.2); Lymphocytes # (auto) 0.9 uL; Lymphocytes % (auto) 12.8 % (10.0-50.0); Mean Corpuscular Hemoglobin 29.6 pg (28.0-32.0); Mean Corpuscular Hgb Conc. 33.1 g/dL (32.0-36.0); Mean Corpuscular Volume 89.5 fL (80.0-100.0); Monocytes # (auto) 0.6 uL; Monocytes % (auto) 9.3 % (0.0-12.0); Neutrophils # (auto) 5.4 uL; Platelet Count (auto) 277 10^3/uL (140-450); Red Blood Cells 4.49 10^6/uL (4.0-5.20); Red Cell Distribution Width 12.6 % (11.8-14.3)
[2019-04-16 13:34] VITALS: BP 161/80
[2019-04-16 13:38] LABS: Urine WBC None Seen /hpf (0 - 5)
[2019-04-16 13:40] LABS: Albumin 3.5 g/dL (3.4-5.0); BUN/Creatinine Ratio 16.3; Calcium 9.2 mg/dL (8.5-10.1); Potassium 3.8 mmol/L (3.5-5.1)
[2019-04-16 13:43] LABS: Urine Bacteria NONE SEEN /hpf (None Seen); Urine Blood Negative /uL (Negative); Urine Hyaline Cast FEW /lpf (0 - 2); Urine Mucus FEW (None Seen); Urine Specific Gravity 1.006 (1.001-1.035)
[2019-04-16 13:51] LABS: Bilirubin, Total 0.3 mg/dL (0.2-1.0); Total Protein 7.4 g/dL (6.4-8.2)
== END 2019-04-16 16:32 | disposition home or self-care (01) ==
LOC: EDBD 12:47 → ER 13:12
DX: E11.649 Type 2 diabetes mellitus with hypoglycemia without coma (principal); R53.1 Weakness; E78.5 Hyperlipidemia, unspecified; Z86.73 Personal history of transient ischemic attack (TIA), and cerebral infarction without residual deficits; Z87.442 Personal history of urinary calculi; Z88.6 Allergy status to analgesic agent; Z88.1 Allergy status to other antibiotic agents; Z95.1 Presence of aortocoronary bypass graft; Z98.61 Coronary angioplasty status
CPT/HCPCS: 36415; 80053; 81001; 82962; 83735; 85025; 94761

== ENCOUNTER 2019-12-28 01:18 | Inpatient (IN) | payer BC ==
[~2019-12-28] VITALS: Ht 165.1 cm; Wt 65.2 kg
[2019-12-28 02:47] LABS: Basophils # (auto) 0.1 10 ^3/uL (0-0.2); Basophils % (auto) 0.7 % (0.0-2.0); Eosinophils # (auto) 0 10 ^3/uL (0-0.8); Eosinophils % (auto) 0.3 % (0.0-7.0); Lymphocytes # (auto) 2.3 10 ^3/uL (0.4-5.4); Lymphocytes % (auto) 29.6 % (10.0-50.0); Mean Corpuscular Hemoglobin 30.2 pg (28.0-32.0); Mean Corpuscular Hgb Conc. 32.6 g/dL (32.0-36.0); Mean Corpuscular Volume 92.5 fL (80.0-100.0); Monocytes # (auto) 0.7 10 ^3/uL (0-1.3); Neutrophils # (auto) 4.6 10 ^3/uL (1.6-8.6); Neutrophils % (auto) 60.4 % (37.0-80.0); Platelet Count (auto) 371 10^3/uL (140-450); Red Blood Cells 4.32 10^6/uL (4.0-5.20); White Blood Cell 7.7 10^3/uL (4.4-10.8)
[2019-12-28 02:58] LABS: Albumin 3.5 g/dL (3.4-5.0); Amylase 68 U/L (25-115); Anion Gap 24 (5-15); Blood Urea Nitrogen 36 mg/dL (7-18); Carbon Dioxide 13 mmol/L (21-32); Chloride 95 mmol/L (98-107); Lipase 148 U/L (73-393); Magnesium 1.9 mg/dL (1.6-2.6); Potassium 4.3 mmol/L (3.5-5.1); Sodium 132 mmol/L (136-145)
[2019-12-28 03:04] LABS: Alanine Aminotransferase 34 U/L (13-56); Alkaline Phosphatase 125 U/L (45-117); Aspartate Aminotransferase 34 U/L (15-37); BUN/Creatinine Ratio 20.6; Bilirubin, Total 0.7 mg/dL (0.2-1.0); GFR African American 38 mL/min; GFR Non-African American 32 mL/min; Total Protein 7.9 g/dL (6.4-8.2)
[2019-12-28 03:27] LABS: Glucose 412 mg/dL (74-106)
[2019-12-28] MEDS ORDERED: SODIUM CHLORIDE 0.9% 1,000 ML IV ONE (04:30)
[2019-12-28] MEDS ORDERED: InsuLIN REG 1unit/0.01ml Soln (100units/ml) IV ONE (04:30)
[2019-12-28] MEDS ORDERED: ONDANSETRON HCL 4 MG/2 ML VIAL ONE (07:28)
[2019-12-28] MEDS ORDERED: ONDANSETRON HCL 4 MG/2 ML VIAL IV ONE (08:00)
[2019-12-28] MEDS ORDERED: SODIUM CHLORIDE 0.9% 2,000 ML IV ONE (08:00)
[2019-12-28] MEDS ORDERED: MORPHINE SULF INJ 2 MG/ML SYRINGE 1ML IV ONE (08:15)
[2019-12-28] MEDS ORDERED: INSULIN LANTUS (GLARGINE) 1 /0.01ml (100units/ml) SC ONE ×2 (08:30→17:30)
[2019-12-28] MEDS ORDERED: DEXTROSE (50%) 50ML SYRG IV PRN (08:30)
[2019-12-28 08:42] LABS: Urine Bacteria NONE SEEN /hpf (None Seen); Urine Blood TRACE /uL (Negative); Urine Specific Gravity 1.014 (1.001-1.035); Urine WBC <1 /hpf (0 - 5)
[2019-12-28] MEDS: SODIUM CHLORIDE 0.9% 1,000 ML IV SCH ×3 (09:03→17:30)
[2019-12-28] MEDS: InsuLIN R (HUMAN) 100 UNITS in SODIUM CHL 0.9% 99 ML IV SCH (09:10)
[2019-12-28] MEDS: ACCU-CHEK COMFORT CURVE STRIP VI SCH ×8 (09:12→22:00)
[2019-12-28 09:40] LABS: Basophils # (auto) 0 10 ^3/uL (0-0.2); Eosinophils # (auto) 0 10 ^3/uL (0-0.8); Hemoglobin 11.8 g/dL (12.2-16.2); Lymphocytes # (auto) 0.6 10 ^3/uL (0.4-5.4); Lymphocytes % (auto) 3.7 % (10.0-50.0)
[2019-12-28 09:44] LABS: Basophils % (auto) 0.1 % (0.0-2.0); Hematocrit 37.8 % (36.0-46.0); Mean Corpuscular Hemoglobin 30.4 pg (28.0-32.0); Mean Corpuscular Hgb Conc. 31.2 g/dL (32.0-36.0); Mean Corpuscular Volume 97.5 fL (80.0-100.0); Monocytes # (auto) 0.9 10 ^3/uL (0-1.3); Monocytes % (auto) 5.6 % (0.0-12.0); Neutrophils # (auto) 14.7 10 ^3/uL (1.6-8.6); Neutrophils % (auto) 90.6 % (37.0-80.0); Platelet Count (auto) 304 10^3/uL (140-450); Red Blood Cells 3.88 10^6/uL (4.0-5.20); Red Cell Distribution Width 14.8 % (11.8-14.3); White Blood Cell 16.3 10^3/uL (4.4-10.8)
[2019-12-28 09:54] LABS: BUN/Creatinine Ratio 21.4; Magnesium 2.2 mg/dL (1.6-2.6); Phosphorus 4.7 mg/dL (2.5-4.90); Potassium 4.7 mmol/L (3.5-5.1)
[2019-12-28] MEDS ORDERED: SODIUM CHLORIDE 0.9% 1,000 ML IV SCH ×2 (12:26→14:26)
[2019-12-28] MEDS ORDERED: NITROGLYCERIN 0.4 MG SL TAB SL PRN (12:30)
[2019-12-28] MEDS ORDERED: LORazepam 0.5 MG TAB PO PRN (12:30)
[2019-12-28] MEDS ORDERED: ALUM & MAG HYDROX-SIMETH LIQ(MAALOX) 30 ML PO PRN (12:30)
[2019-12-28] MEDS ORDERED: HYDROcodone-ACET 5/325MG TAB PO PRN (12:30)
[2019-12-28] MEDS ORDERED: MORPHINE SULF INJ 2 MG/ML SYRINGE 1ML IV PRN ×2 (12:30)
[2019-12-28] MEDS ORDERED: cefTRIAXone 1GM/50ML D5W 50 ML IV ONE (12:30)
[2019-12-28] MEDS ORDERED: DOCUSATE SOD 100 MG CAP PO PRN (12:30)
[2019-12-28] MEDS ORDERED: D5W/SOD CHLO 0.9% 1,000 ML IV ONE (12:45)
[2019-12-28] MEDS ORDERED: FUROSEMIDE 40 MG/4 ML VIAL IV ONE (13:15)
[2019-12-28] MEDS ORDERED: PANTOPRAZOLE 40 MG/10 ML VIAL INJ IV ONE (14:30)
[2019-12-28 14:31] LABS: Cholesterol 190 mg/dL (< 200); HDL Cholesterol 68 mg/dL (40-59); LDL Cholesterol 103 mg/dL (< 100); Triglycerides 210 mg/dL (< 150)
[2019-12-28 15:27] LABS: Calcium 7.9 mg/dL (8.5-10.1); Potassium 3.9 mmol/L (3.5-5.1)
[2019-12-28 15:53] LABS: BUN/Creatinine Ratio 19.2
[2019-12-28 15:59] LABS: Amphetamine Screen, Urine NEGATIVE (NEGATIVE); Barbiturate Scree,Urine NEGATIVE (NEGATIVE); Benzodiazephine Screen, Urine NEGATIVE (NEGATIVE); Cannabinoid Screen, Urine NEGATIVE (NEGATIVE); Cocaine Screen, Urine NEGATIVE (NEGATIVE); Opiate Scree,Urine NEGATIVE (NEGATIVE); Phencyclidine Screen, Urine NEGATIVE (NEGATIVE)
[2019-12-28 16:06] LABS: Alcohol, Urine < 3.0 mg/dL (0-10)
[2019-12-28] MEDS ORDERED: ENOXAPARIN SOD 60 MG/0.6 ML SYRINGE SC ONE (16:15)
[2019-12-28] MEDS: FUROSEMIDE 20 MG/2 ML VIAL IV SCH (18:00)
[2019-12-28 18:23] LABS: INR 1.07 (0.9-1.15)
[2019-12-28] MEDS ORDERED: ANGIOMAX 250 MG VIAL IV ONE (18:27)
[2019-12-28] MEDS ORDERED: LIDOCAINE 2%HCL (LOCAL ANESTH.) INJ 20ML MDV ONE (18:28)
[2019-12-28] MEDS ORDERED: HEPARIN SODIUM (PORCINE) 5000 UNITS/ML 1ML VIAL ONE (18:28)
[2019-12-28] MEDS ORDERED: MIDAZOLAM HCL 1MG/1ML-2 ML VIAL ONE (18:28)
[2019-12-28] MEDS ORDERED: VERAPAMIL 2.5MG/ML INJ 2ML VIAL IV ONE (18:28)
[2019-12-28] MEDS ORDERED: fentaNYL CITRATE 100 MCG/2 ML VL ONE (18:28)
[2019-12-28] MEDS ORDERED: NITROGLYCERIN 50MG/250ML 0 ML IV ONE (18:28)
[2019-12-28] MEDS ORDERED: SODIUM CHL 0.9% 0 ML ONE (18:28)
[2019-12-28] MEDS ORDERED: HEPARIN IN NS 1000Units/500mL 1,500 ML ONE (18:29)
[2019-12-28] MEDS ORDERED: IODIXANOL 320MG/ML 100ML BTL IV ONE ×2 (18:29→19:32)
[2019-12-28] MEDS ORDERED: SODIUM BICARBONATE 8.4 % INJ 50ML VIAL IV ONE (19:38)
[2019-12-28] MEDS: InsuLIN REG 1unit/0.01ml Soln (100units/ml) SC SCH (22:00)
--- NOTE | 2019-12-28 22:00 | NUR ---
Patient taken to [facility], placed on drug abuse program coordinator, Vital signs WNL, patient denies any pain, Right groin soft to touch, no bleeding, no hematoma noted at this time. Care endorsed to Kayley RAINEY.
[2019-12-28 22:05] VITALS: BP 120/68
--- NOTE | 2019-12-28 22:05 | NUR ---
Admit to [facility] Admitted to [facility] via gurney on campus monitor, and portable 02. Patient transferred to bed, connected to unit monitoring and oxygen, and weighed by bedscale. Patient oriented to Kayley Menendez, primary RN, unit, room, bed, and unit policies regarding patient care and visiting hours. All questions and concerns addressed, patient verbalized understanding. Dressing CDI, stable at this time.
[2019-12-28 23:29] LABS: BUN/Creatinine Ratio 17.4; Calcium 7.7 mg/dL (8.5-10.1); Potassium 4.1 mmol/L (3.5-5.1)
[2019-12-29] VITALS: BP 126/71
--- NOTE | 2019-12-29 | NUR ---
Spoke with and updated on pt status. upset that he hadn't spoken to anyone in hours. Spoke with for an hour and informed him that I would pass in report that the MD will be informed to call for update.
[2019-12-29] MEDS ORDERED: SODIUM BICARBONATE 8.4 % INJ 50ML VIAL IV ONE (00:40)
[2019-12-29] MEDS: SODIUM BICARBONATE 50ML VIAL 50 ML in SOD CHL 0.45% 1,000 ML IV SCH ×2 (02:45→07:15)
[2019-12-29] MEDS: SODIUM CHLORIDE 0.9% 1,000 ML IV SCH ×3 (02:53→23:30)
[2019-12-29] MEDS: ENOXAPARIN SOD 60 MG/0.6 ML SYRINGE SC SCH ×3 (03:47→21:18)
[2019-12-29] MEDS: ONDANSETRON HCL 4 MG/2 ML VIAL IV PRN ×3 (03:48→20:03)
[2019-12-29 04:00] VITALS: BP 149/79
[2019-12-29] MEDS: FUROSEMIDE 20 MG/2 ML VIAL IV SCH ×2 (06:48→18:00)
[2019-12-29] MEDS: ACCU-CHEK COMFORT CURVE STRIP VI SCH ×4 (06:48→22:00)
[2019-12-29] MEDS: InsuLIN REG 1unit/0.01ml Soln (100units/ml) SC SCH ×4 (06:49→22:00)
[2019-12-29 07:01] LABS: Basophils # (auto) 0 10 ^3/uL (0-0.2); Basophils % (auto) 0.3 % (0.0-2.0); Eosinophils # (auto) 0 10 ^3/uL (0-0.8); Eosinophils % (auto) 0.1 % (0.0-7.0); Hematocrit 37.3 % (36.0-46.0); Hemoglobin 12.2 g/dL (12.2-16.2); Lymphocytes # (auto) 1.2 10 ^3/uL (0.4-5.4); Lymphocytes % (auto) 9.2 % (10.0-50.0); Mean Corpuscular Hemoglobin 29.9 pg (28.0-32.0); Mean Corpuscular Hgb Conc. 32.8 g/dL (32.0-36.0); Mean Corpuscular Volume 91.1 fL (80.0-100.0); Monocytes % (auto) 7.4 % (0.0-12.0); Neutrophils # (auto) 10.9 10 ^3/uL (1.6-8.6); Platelet Count (auto) 279 10^3/uL (140-450); Red Blood Cells 4.09 10^6/uL (4.0-5.20); Red Cell Distribution Width 14.4 % (11.8-14.3); White Blood Cell 13.1 10^3/uL (4.4-10.8)
[2019-12-29 07:16] LABS: Albumin 2.8 g/dL (3.4-5.0); Calcium 8.1 mg/dL (8.5-10.1); Magnesium 1.7 mg/dL (1.6-2.6); Potassium 3.5 mmol/L (3.5-5.1)
[2019-12-29 07:21] LABS: BUN/Creatinine Ratio 15.3; Bilirubin, Total 0.3 mg/dL (0.2-1.0); Total Protein 6.8 g/dL (6.4-8.2)
[2019-12-29 07:22] LABS: INR 1.06 (0.9-1.15)
--- NOTE | 2019-12-29 07:30 | NUR ---
Pt stable, report given, care endorsed.
[2019-12-29 08:00] VITALS: BP 120/62
[2019-12-29] MEDS: InsuLIN R (HUMAN) 100 UNITS in SODIUM CHL 0.9% 99 ML IV SCH (08:26)
[2019-12-29] MEDS ORDERED: ENOXAPARIN SOD 40 MG/0.4 ML SYRINGE SC SCH (10:00)
[2019-12-29] MEDS: PANTOPRAZOLE 40 MG/10 ML VIAL INJ IV SCH (10:32)
[2019-12-29] MEDS: cefTRIAXone 1GM/50ML D5W 50 ML IV SCH (10:32)
[2019-12-29] MEDS: INSULIN LANTUS (GLARGINE) 1 /0.01ml (100units/ml) SC SCH (11:00)
--- NOTE | 2019-12-29 11:07 | NUR ---
MD WITH PT SPOKE WITH PT AND PT'S ON POC.
--- NOTE | 2019-12-29 11:50 | NUR ---
REPORT Report received from Vianney RAINEY, will continue to plan of care.
--- NOTE | 2019-12-29 11:50 | NUR ---
CARE ENDORSED TRANSFERRED CARE TO [facility] RN.
[2019-12-29 12:00] VITALS: BP 125/64
[2019-12-29] MEDS: levoFLOXacin 250MG 50 ML IV SCH (14:41)
[2019-12-29 16:00] VITALS: BP 135/73
[2019-12-29 20:00] VITALS: BP 142/73
--- NOTE | 2019-12-29 20:09 | NUR ---
Pt nauseas and vomiting. Has not eaten today due to nausea. Zofran does not appear to be helping. MD called for orders, Phenergan ordered. Will continue to monitor.
[2019-12-29] MEDS: PROMETHAZINE HCL 25 MG/ML 1ML IV PRN (21:18)
--- NOTE | 2019-12-29 21:45 | NUR ---
Glucose 29 and rechecked on other hand with same result. D50 IV given. Will continue to monitor.
[2019-12-29] MEDS: DEXTROSE (50%) 50ML SYRG IV PRN (21:50)
--- NOTE | 2019-12-29 22:30 | NUR ---
Glucose 137, pt stable at this time.
[2019-12-30] VITALS: BP 133/66
[2019-12-30] MEDS: PROMETHAZINE HCL 25 MG/ML 1ML IV PRN ×2 (02:57→08:37)
[2019-12-30] MEDS: DEXTROSE (50%) 50ML SYRG IV PRN (02:58)
[2019-12-30 04:00] VITALS: BP 155/88
[2019-12-30] MEDS: InsuLIN R (HUMAN) 100 UNITS in SODIUM CHL 0.9% 99 ML IV SCH (06:10)
[2019-12-30] MEDS: InsuLIN REG 1unit/0.01ml Soln (100units/ml) SC SCH ×4 (06:11→21:42)
[2019-12-30] MEDS: ACCU-CHEK COMFORT CURVE STRIP VI SCH ×4 (06:12→21:42)
--- NOTE | 2019-12-30 06:12 | NUR ---
Pt had been given Lantus during AM shift, pt has been nauseated, vomiting, and has not been eating. Glucose was 63 before dinner for AM shift, at 2200 glucose was 29, D50 given. At 0300 glucose was 60, D50 given again to prevent another severe drop or further decline of glucose. Pt stable at this time. Glucose 167 no coverage. Will continue to monitor.
[2019-12-30] MEDS: FUROSEMIDE 20 MG/2 ML VIAL IV SCH ×2 (06:27→17:17)
--- NOTE | 2019-12-30 07:45 | NUR ---
Opening Shift Note Assumed care of patient, awake and alert. No S/S of distress/SOB or pain. Instructed on POC and to call for assist PRN, will continue to monitor for changes Q1hr and PRN. Bed locked in lowest position with two side rails up and call light in reach. Addendum: 12/30/19 at 1621 by Sara Sommer RN WRONG NOTE
--- NOTE | 2019-12-30 07:45 | NUR ---
OPENING SHIFT NOTE: Received report from NOC RN, Kayley. Assumed care of patient. Patient received lying in bed, resting, connected to bedside monitor with all alarms in place. Patient is A&Ox4, but with occasional forgetfulness and denies pain. Patient on 2L NC with O2 sats 100%. Patient is complaining of nausea and will medicate with Phengren as ordered. Patient with PIV to left FA #20 with IVF NS infusing at 75ml/hr. Patient's right upper midline #18 intact and flushes well. Bed in lowest position, rails x2 up and call light within reach. Updated on plan of care. Patient is a tele downgrade when bed is available. Will continue to monitor q1hr/PRN.
[2019-12-30 08:00] VITALS: BP 143/79
[2019-12-30] MEDS: SODIUM CHLORIDE 0.9% 1,000 ML IV SCH ×2 (09:30→19:30)
[2019-12-30] MEDS: INSULIN LANTUS (GLARGINE) 1 /0.01ml (100units/ml) SC SCH (10:00)
[2019-12-30] MEDS: ENOXAPARIN SOD 60 MG/0.6 ML SYRINGE SC SCH ×2 (10:00→21:27)
--- NOTE | 2019-12-30 10:00 | NUR ---
MEDICATIONS: 1000 dose of lantus held due to patient's persistent nausea and poor appetite. Educated patient on monitoring blood glucose and treating with regular insulin while patient has been nauseous. Patient verbalized understanding. Will continue to monitor.
[2019-12-30] MEDS: cefTRIAXone 1GM/50ML D5W 50 ML IV SCH (10:48)
[2019-12-30] MEDS: PANTOPRAZOLE 40 MG/10 ML VIAL INJ IV SCH (10:48)
[2019-12-30] MEDS: levoFLOXacin 250MG 50 ML IV SCH (10:49)
[2019-12-30 12:00] VITALS: BP 143/73
--- NOTE | 2019-12-30 15:00 | NUR ---
Patient complaining of frequent loose stools. Patient has had three loose bowel movements today. Patient requested something from MD to help minimize diarrhea. Educated patient about monitoring stools and may be a side effect from antibiotics. Will continue to monitor.
[2019-12-30 16:00] VITALS: BP 119/63
--- NOTE | 2019-12-30 16:15 | NUR ---
Gave report to BRIGID Ruiz. Patient transferred via w/c to room 270B on tele box and room air with all personal belongings. , Augustin, called and notified of patient's transferred.
--- NOTE | 2019-12-30 16:15 | NUR ---
REPORT RECEIVED FROM RANDALL RAINEY IN [facility]. WILL AWAIT PATIENT.
--- NOTE | 2019-12-30 16:38 | NUR ---
RECEIVED PATIENT TO THE FLOOR.
--- NOTE | 2019-12-30 18:16 | NUR ---
assessment re: ss consult Patient is a 58 year old female who is alert and oriented. Prior to admission patient lived home with family and functioned independently. Patient informed me she is able to care for her own ADLs. Per patient she will return home to her prior living arrangements post discharge and family will transport her home. I informed patient she has a ss consult that she has trouble getting her insulin. Patient informed me she needs a prescription for her insulin. Patient will ask MD for RX on discharge. As for ss consult for short term memory problems. I have not identified any issues with patients memory. I will continue to monitor and follow up as appropriate. I informed patient she has a right to speak to a social studies teacher regarding all care. I informed patient she has a right to participate in any and all discharge planning. Patient does not have a POA and advanced directive. I have offered patient information on POA and advanced directives. I informed the patient the advantages and benefits of having an Advanced Directive. Patient verbalized understanding and agreed to discharge plan. Addendum: 12/30/19 at 1821 by Maricarmen SHIRLEY Amended: Links added.
--- NOTE | 2019-12-30 19:30 | NUR ---
Opening Shift Note Assumed care of patient, awake and alert. No S/S of distress/SOB or pain. Instructed on POC and to call for assist PRN, will continue to monitor for changes Q1hr and PRN.
[2019-12-30 22:00] VITALS: BP 134/66
[2019-12-31 05:00] VITALS: BP 131/81
[2019-12-31] MEDS: SODIUM CHLORIDE 0.9% 1,000 ML IV SCH ×2 (06:09→18:41)
[2019-12-31] MEDS: FUROSEMIDE 20 MG/2 ML VIAL IV SCH ×2 (06:10→18:00)
[2019-12-31] MEDS: ACCU-CHEK COMFORT CURVE STRIP VI SCH ×4 (06:10→20:58)
[2019-12-31] MEDS: InsuLIN REG 1unit/0.01ml Soln (100units/ml) SC SCH ×4 (06:59→20:00)
[2019-12-31] MEDS ORDERED: IODIXANOL 320MG/ML 100ML BTL IV ONE ×2 (07:36→10:38)
[2019-12-31] MEDS ORDERED: LIDOCAINE 2%HCL (LOCAL ANESTH.) INJ 20ML MDV ONE (07:36)
[2019-12-31] MEDS ORDERED: IOHEXOL 350 MG/ML 100ML IJ ONE (07:36)
--- NOTE | 2019-12-31 07:40 | NUR ---
Opening Shift Note Assumed care of patient, awake and alert. No S/S of distress/SOB or pain. Instructed on POC and to call for assist PRN, will continue to monitor for changes Q1hr and PRN. Bed locked in lowest position with two side rails up and call light in reach.
[2019-12-31 09:03] VITALS: BP 136/72
[2019-12-31] MEDS: cefTRIAXone 1GM/50ML D5W 50 ML IV SCH (09:43)
[2019-12-31] MEDS: PANTOPRAZOLE 40 MG/10 ML VIAL INJ IV SCH (09:44)
[2019-12-31] MEDS: levoFLOXacin 250MG 50 ML IV SCH (09:44)
[2019-12-31] MEDS: INSULIN LANTUS (GLARGINE) 1 /0.01ml (100units/ml) SC SCH (09:48)
[2019-12-31] MEDS: ENOXAPARIN SOD 60 MG/0.6 ML SYRINGE SC SCH ×2 (09:48→21:02)
--- NOTE | 2019-12-31 10:15 | NUR ---
PATIENT TAKEN DOWN TO TRANSPORTATION SUPERINTENDENT. AWAKE ALERT AND ORIENTED, NO SIGNS AND SYMPTOMS OF DISTRESS NOTED.
[2019-12-31] MEDS ORDERED: SODIUM CHL 0.9% 50 ML ONE (10:36)
[2019-12-31] MEDS ORDERED: ANGIOMAX 250 MG VIAL IV ONE (10:36)
[2019-12-31] MEDS ORDERED: fentaNYL CITRATE 100 MCG/2 ML VL ONE (10:36)
[2019-12-31] MEDS ORDERED: ATROPINE SULF 1 MG/10ml SYR ONE (10:37)
[2019-12-31] MEDS ORDERED: MIDAZOLAM HCL 1MG/1ML-2 ML VIAL ONE (10:37)
[2019-12-31] MEDS ORDERED: VERAPAMIL 2.5MG/ML INJ 2ML VIAL IV ONE (10:55)
[2019-12-31] MEDS ORDERED: HEPARIN SODIUM (PORCINE) 5000 UNITS/ML 1ML VIAL ONE (10:55)
[2019-12-31] MEDS ORDERED: ASPirin 325 MG TAB ONE (11:19)
[2019-12-31] MEDS ORDERED: TICAGRELOR 90 MG TAB ONE (11:19)
[2019-12-31] MEDS: InsuLIN R (HUMAN) 100 UNITS in SODIUM CHL 0.9% 99 ML IV SCH ×2 (12:48→13:52)
[2019-12-31 13:00] VITALS: BP 144/80
--- NOTE | 2019-12-31 13:02 | NUR ---
blood sugar pt's b/s level at 461 at 1236 re-confirmed b/s level to 504 at 1244. patient states, "it's because I haven't exercised.." administered total of 15U of R insulin per SL scale. endorsed to primary RN at bedside to recheck b/s in an hour and also to notify physician.
--- NOTE | 2019-12-31 13:02 | NUR ---
RECEIVED REPORT FROM TERRENCE ROMERO RN. 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
[2019-12-31] MEDS ORDERED: TICAGRELOR 90 MG TAB PO ONE (13:08)
--- NOTE | 2019-12-31 13:34 | NUR ---
BACK TO [facility] FLOOR Patient back on floor, no c/o pain. No s/s of distress noted/stated. Will continue to monitor.
[2019-12-31] MEDS: SODIUM CHLOR 0.9% PF (SALINE LOCK) 10ML VIAL/SYR IV SCH ×2 (14:00→21:01)
--- NOTE | 2019-12-31 14:00 | NUR ---
Blood sugar Re-checked blood sugar, BS currently at 428, paged for . Addendum: 12/31/19 at 1417 by Carol Somers RN orders received from Dr. Miriam Regalado . Placed patient on accu checks Q4 moderate sliding scale. Addendum: 12/31/19 at 1429 by Carol Somers RN perf , give a one time dose now, per Moderate sliding scale protocol. orders received and verified.
--- NOTE | 2019-12-31 14:05 | NUR ---
Vasc band began deflation of vasc band, removed 2cc. no bleeding noted. Will continue to monitor Addendum: 12/31/19 at 1435 by Carol Somers RN 1422* deflated 2cc of air. no bleeding noted. Addendum: 12/31/19 at 1510 by Carol Somers RN 1505* Removed Vasc-band. Applied 4x4 gauze and Tegaderm dressing. no bleeding noted, radial pulses present. no c/o pain. Will continue to monitor.
--- NOTE | 2019-12-31 14:25 | NUR ---
Nutrition Assessment Notes please see attached link for complete assessment [employer] needs BW 66 [id number] kcals (25.-30 kcal/kgBW), Est Protein needs: 66-72 gms/day (1.0-1.1 gm/kgBW). Will continue to monitor and reassess prn. Addendum: 12/31/19 at [address] Amended: Links added.
[2019-12-31] MEDS ORDERED: DEXTROSE (50%) 50ML SYRG IV PRN (14:30)
[2019-12-31 16:32] VITALS: BP 92/58
--- NOTE | 2019-12-31 19:24 | NUR ---
Report Endorsed care to NOC RN.
--- NOTE | 2019-12-31 21:00 | NUR ---
pt blood sugar dropped to 40's done 3x but asymptomatic. juice given and repeat blood sugar:93. will continue to monitor
[2019-12-31] MEDS: TICAGRELOR 90 MG TAB PO SCH (21:01)
[2019-12-31 22:00] VITALS: BP 96/42
[2020-01-01] MEDS: SODIUM CHLORIDE 0.9% 1,000 ML IV SCH ×2 (00:06→11:46)
[2020-01-01] MEDS: ACCU-CHEK COMFORT CURVE STRIP VI SCH ×5 (00:06→16:00)
[2020-01-01] MEDS: InsuLIN REG 1unit/0.01ml Soln (100units/ml) SC SCH ×5 (00:08→16:00)
[2020-01-01 05:00] VITALS: BP 128/69
[2020-01-01] MEDS: FUROSEMIDE 20 MG/2 ML VIAL IV SCH (05:45)
[2020-01-01] MEDS: SODIUM CHLOR 0.9% PF (SALINE LOCK) 10ML VIAL/SYR IV SCH ×2 (05:45→14:20)
[2020-01-01] MEDS: cefTRIAXone 1GM/50ML D5W 50 ML IV SCH (08:33)
[2020-01-01 09:00] VITALS: BP 127/72
[2020-01-01] MEDS ORDERED: ASPirin-EC 81 mg tab PO SCH (10:00)
[2020-01-01] MEDS: levoFLOXacin 250MG 50 ML IV SCH (10:00)
[2020-01-01] MEDS: PANTOPRAZOLE 40 MG/10 ML VIAL INJ IV SCH (10:00)
--- NOTE | 2020-01-01 11:32 | NUR ---
PATIENT COMPLAINING OF LEFT SIDE NECK AND SHOULDER PAIN. ASSESSED PATIENT AND LEFT RADIAL PULSE NON PALPABLE. PATIENT PULSE AUSCULTATED WITH DOPPLER AND LIGHTLY AUDIBLE. PATIENTS RIGHT WRIST PULSE IS STRONG AND PALPABLE RADIAL PULSE ARE NOT BILATERALLY EQUAL BP ON LEFT ARM WAS 146/62 RIGHT ARM HAS MID LINE UNABLE TO COMPARE BP BILATERALLY. CHARGE NURSE NOTIFIED, LIE DETECTOR OPERATOR NOTIFIED (DIRECTOR MARLON) PER MARLON PATIENT HAD PROCEDURE DONE ON THE RIGHT WRIST NOT LEFT AND I NEED TO NOTIFY HOSPITALIST. I TOLD MARLON THAT PATIENTS PRIMARY AND CARDIOLOGY IS DR BALL. I NOTIFIED LIE DETECTOR OPERATOR PER CHARGE NURSE REQUEST. DR BALL NOTIFIED AND RECEIVED A CALL BACK FROM DR BALL, PER DR BALL PATIENT CAN BE DISCHARGED AND IS TO FOLLOW UP WITH HIM TOMORROW, PER DR BALL PATIENT CAN WALK IN ANYTIME IN THE AM. PATIENT WAS PROVIDED ADDRESS AND PHONE NUMBER.
[2020-01-01] MEDS: INSULIN LANTUS (GLARGINE) 1 /0.01ml (100units/ml) SC SCH (12:03)
[2020-01-01] MEDS: TICAGRELOR 90 MG TAB PO SCH (12:06)
[2020-01-01] MEDS: ENOXAPARIN SOD 60 MG/0.6 ML SYRINGE SC SCH (12:07)
[2020-01-01 13:00] VITALS: BP 141/71
--- NOTE | 2020-01-01 13:00 | NUR ---
NEWBERRY REMOVED PATIENT TOLERATED WELL.
--- NOTE | 2020-01-01 16:30 | NUR ---
PATIENT REFUSED ACCU CHECK STATES SHE WILL CHECK IT AT HOME ONCE SHE ARRIVES.
[2020-01-01 16:33] VITALS: BP 141/71
[2020-01-01 17:00] VITALS: BP 116/67
--- NOTE | 2020-01-01 17:00 | NUR ---
MRSA SWAB SENT TO LAB PER PROTOCOL.
--- NOTE | 2020-01-01 17:33 | NUR ---
Discharge instructions given as ordered. Encourage to follow up with PMD as instructed. All questions and concerns addressed. Patient verbalized understanding. Medication reconciliation form completed and copy given to patient. No Home medications held in Pharmacy and none to be returned to patient, and no needed vaccines given. IV removed with catheter intact x 2, pressure dressing applied, tyler catheter removed, patient urinated without any difficulties. Telemetry unit returned to ICU. Patient taken to vehicle via wheelchair with all personal belongings including prescriptions, accompanied by staff and family member. No distress noted at time of departure.
== END 2020-01-01 17:40 | disposition home or self-care (01) | DRG 250 ==
LOC: ER 01:18 → OVERFLOW 01:19 → DOU IN ICU 22:00 → TELE-WESTW 12-30 16:39
PROVIDERS: ADMIT Hospitalist; ATTEND Specialist
PROC: 4A023N7 Measurement of Cardiac Sampling and Pressure, Left Heart, Percutaneous Approach (ICD-10-PCS; 2019-12-28)
PROC: B211YZZ Fluoroscopy of Multiple Coronary Arteries using Other Contrast (ICD-10-PCS; 2019-12-28)
PROC: B310YZZ Fluoroscopy of Thoracic Aorta using Other Contrast (ICD-10-PCS; 2019-12-28)
PROC: B215YZZ Fluoroscopy of Left Heart using Other Contrast (ICD-10-PCS; 2019-12-28)
PROC: B212YZZ Fluoroscopy of Single Coronary Artery Bypass Graft using Other Contrast (ICD-10-PCS; 2019-12-28)
PROC: B218YZZ Fluoroscopy of Left Internal Mammary Bypass Graft using Other Contrast (ICD-10-PCS; 2019-12-28)
PROC: B51BYZZ Fluoroscopy of Right Lower Extremity Veins using Other Contrast (ICD-10-PCS; 2019-12-28)
PROC: B311YZZ Fluoroscopy of Right Brachiocephalic-Subclavian Artery using Other Contrast (ICD-10-PCS; 2019-12-28)
PROC: 02703ZZ Dilation of Coronary Artery, One Artery, Percutaneous Approach (ICD-10-PCS; principal; 2019-12-31)
PROC: B31 Imaging, Upper Arteries, Fluoroscopy (ICD-10-PCS; 2019-12-31)
PROC: B2171ZZ Fluoroscopy of Right Internal Mammary Bypass Graft using Low Osmolar Contrast (ICD-10-PCS; 2019-12-31)
PROC: 03HY32Z Insertion of Monitoring Device into Upper Artery, Percutaneous Approach (ICD-10-PCS; 2019-12-31)
PROC: 02C03ZZ Extirpation of Matter from Coronary Artery, One Artery, Percutaneous Approach (ICD-10-PCS; 2019-12-31)
PROC: 4A023N7 Measurement of Cardiac Sampling and Pressure, Left Heart, Percutaneous Approach (ICD-10-PCS; 2019-12-31)
PROC: B240ZZ3 Ultrasonography of Single Coronary Artery, Intravascular (ICD-10-PCS; 2019-12-31)
PROC: B2111ZZ Fluoroscopy of Multiple Coronary Arteries using Low Osmolar Contrast (ICD-10-PCS; 2019-12-31)
DX: T82.855A Stenosis of coronary artery stent, initial encounter (principal); E11.10 Type 2 diabetes mellitus with ketoacidosis without coma; I21.4 Non-ST elevation (NSTEMI) myocardial infarction; J96.01 Acute respiratory failure with hypoxia; N17.0 Acute kidney failure with tubular necrosis; E87.2 Acidosis; N39.0 Urinary tract infection, site not specified; E87.1 Hypo-osmolality and hyponatremia; N18.3 Chronic kidney disease, stage 3 (moderate); E11.22 Type 2 diabetes mellitus with diabetic chronic kidney disease; D50.9 Iron deficiency anemia, unspecified; I12.9 Hypertensive chronic kidney disease with stage 1 through stage 4 chronic kidney disease, or unspecified chronic kidney disease; D63.8 Anemia in other chronic diseases classified elsewhere; M54.9 Dorsalgia, unspecified; Z88.5 Allergy status to narcotic agent; Z88.1 Allergy status to other antibiotic agents; Z98.51 Tubal ligation status; D53.9 Nutritional anemia, unspecified; G89.29 Other chronic pain; Z83.6 Family history of other diseases of the respiratory system; N20.0 Calculus of kidney; Y83.1 Surgical operation with implant of artificial internal device as the cause of abnormal reaction of the patient, or of later complication, without mention of misadventure at the time of the procedure; R16.0 Hepatomegaly, not elsewhere classified; Z79.82 Long term (current) use of aspirin; Z79.4 Long term (current) use of insulin; Z82.5 Family history of asthma and other chronic lower respiratory diseases; Z82.61 Family history of arthritis; Z82.49 Family history of ischemic heart disease and other diseases of the circulatory system; Z82.62 Family history of osteoporosis; Z95.810 Presence of automatic (implantable) cardiac defibrillator; Z80.1 Family history of malignant neoplasm of trachea, bronchus and lung; Z80.3 Family history of malignant neoplasm of breast; Z80.41 Family history of malignant neoplasm of ovary; Z80.8 Family history of malignant neoplasm of other organs or systems; Z81.8 Family history of other mental and behavioral disorders; Z82.3 Family history of stroke; Z82.0 Family history of epilepsy and other diseases of the nervous system; Z83.3 Family history of diabetes mellitus; Z91.19 Patient's noncompliance with other medical treatment and regimen; Z98.61 Coronary angioplasty status; Z88.0 Allergy status to penicillin; I25.10 Atherosclerotic heart disease of native coronary artery without angina pectoris
CPT/HCPCS: 36225; 36415; 36600; 51702; 71045; 74176; 75710; 80048; 80053; 80061; 80307; 81001; 82010; 82150; 82805; 82962; 83036; 83690; 83735; 83930; 84100; 84443; 84484; 85025; 85610; 85730; 86850; 86900; 86901; 87040; 87081; 87086; 92924; 92978; 93005; 93306; 93459; 93567; 96365; 96366; 96367; 96372; 96375; 99152; 99153; 99291; C1769; C9113; G0378; J0696; J1815; J2250; J2405; J7042; Q9967

== ENCOUNTER 2024-07-15 10:46 | Emergency (ER) | payer BC, SELFPAY ==
[~2024-07-15] VITALS: Ht 165.1 cm; Wt 55.2 kg
[~2024-07-15 10:46] MED LIST changes: -GLIP5TAB12 PO; +GLIP5TAB21 PO; -SIMV-8 PO; +SIMV20TA20 PO
[2024-07-15 10:54] VITALS: TEMP 98.3
[2024-07-15 10:56] VITALS: BP 153/58; PULSE 92; RESP 18; O2SAT 99
--- NOTE | 2024-07-15 12:00 | ED.PDOC ---
Back pain HPI HPI Comments 63 year old F presents for pain to the right rib. Reports a mechanical fall after tripping and hitting the door knob. Caused by grand daughter dripping her. Pain rated as moderate and worsens with movements and deep breathing. 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) Amoxicillin (Verified Allergy, Mild, VOMITING, 03/29/13) Home Meds Active Scripts Lidocaine (LIDODERM 5% TOPICAL PATCH) 1 Patch Ph, 1 PATCH TOP DAILY for 30 Days, #30 PATCH 0 Refills Prov:AILIN MONTES DE OCACon Ramsey DRUG COORDINATOR 07/15/24 Reported Medications Insulin Regular (Human) (Humulin R) 1 Ml Inj, 1 ML IJ, INJ 10/05/15 Aspirin (Aspirin) 120 Mg Sup, 160 MG RE DAILY 01/09/14 Glipizide (Glipizide) 5 Mg Tab, 1 TAB PO DAILY, #90 TAB 3 Refills 01/09/14 Metoprolol Succinate (Toprol Xl) 25 Mg Tab, 25 MG PO DAILY, TAB 11/12/13 Simvastatin (Simvastatin) 20 Mg Tab, 20 MG PO DAILY for 30 Days 11/12/13 [Regular Insulin] No Conflict Check 12/17/10 Information Source: Patient Mode of Arrival: Wheelchair Past Medical History PAST MEDICAL HISTORY: CAD, DM, Gallstones, High Lipids, Kidney Stones, UTI'S Surgical History: BTL, CABG, Pacemaker, PTCA INSPECTOR SCALES History: No Pertinent INSPECTOR SCALES History Family History Family History: Family hx of heart barrington Social History Smoker: Non-Smoker Alcohol: Denies ETOH Use Drugs: Denies Drug Use Lives In: Home All Other Systems: Reviewed and Negative (Per HPI) Physical Exam General Appearance: No Apparent Distress, Normal HEENT: Normal ENT Inspection, Pharynx Normal, TMs Normal Neck: Full Range of Motion, Non-Tender, Normal, Normal Inspection Respiratory: Chest Non-Tender, Lungs Clear, No Accessory Muscle Use, No Respiratory Distress, Normal Breath Sounds Cardiovascular: No Murmur, No Gallop, Regular Rate/Rhythm, Other (No contussion to right rib.) Breast Exam: Deferred Gastrointestinal: No Organomegaly, Non Tender, No Pulsatile Mass, Normal Bowel Sounds, Soft Genitalia: Deferred Pelvic: Deferred Rectal: Deferred Extremities: No calf tenderness, Normal capillary refill, Normal inspection, Normal range of motion, Non-tender, No pedal edema Musculoskeletal : Apperance: Normal Neurologic: Alert, croze cutter helper II-XII nml as Tested, No Motor Deficits, Normal Affect, Normal Mood, No Sensory Deficits Cerebellar Function: Normal Reflexes: Normal Skin: Dry, Normal Color, Warm Lymphatic: No Adenopathy Was a procedure done? Was a procedure done?: No Back Pain Differential Dx Differential Diagnosis: Fracture, Musculoskeletal Pain, Strain X-Ray, Labs, Meds, VS Vital Signs Date Time Temp Pulse Resp B/P (MAP) Pulse Ox O2 Delivery O2 Flow Rate FiO2 07/15/24 10:56 98.3 92 18 153/58 (89) 99 07/15/24 10:54 92 18 99 Room Air 07/15/24 10:54 98.3 92 18 153/58 (89) 99 98.3 Lab Test 07/15/24 10:54 Range/Units POC Glucose 262 H 70-106 mg/dl PATIENT: LUPE CAMPBELL AACCT: [id number]: [id number] : 1960 LOC: ER ROOM / BED: / AGE / SEX: 63 / F ADM STATUS: REG ER SERVICE 1200 ORDERING PHYSICIAN: APOLLO MONTES DE OCA NP PROCEDURE(s): RRIBS - R RIB XRAY REASON: fall ORDER NUMBER(s): [id number], ACCESSION NUMBER(s): [id number] Procedure: XY R RIB XRAY 07/15/2024 12:37 PM Indication: fall Comparison: None TECHNIQUE: AP of the chest 4 views of the right ribcage FINDINGS: Medical devices: AICD wires noted extending of the right cardiac chambers. Cardiomediastinal: The heart is normal in size. Pulmonary vasculature is within normal limits. Median sternotomy wires and mediastinal vascular clips are seen. Lungs: No focal pulmonary opacity is seen. The costophrenic angles are clear. No pneumothorax. Bones/soft tissues: There is deformity of the posterior aspect of the 10th rib reflecting an age indeterminate fracture. IMPRESSION: 1. Age-indeterminate, probably old healed fracture of the posterior 10th rib. Correlate with point tenderness. 2. No acute cardiopulmonary disease. ATED BY: SIMI MARCELO MD DICTATED DATE/TIME: 07/15/24 125 SIGNED BY: SIMI MARCELO MD SIGNED DATE/TIME: 07/15/24 1255 CC: X-Ray, Labs, Meds, VS Comment History and examination consistent of muscular injury, no acute findings. X-rays ordered, read by radiologist and reviewed by me Complaint lidocaine patches as needed for pain Recommended heat therapy Reviewed RICE management Avoid heavy lifting or strenuous activity Recommended range of motion exercises and limit heavy activity for 1 week If no improvement advised patient to return to the emergency department for follow-up. Discussed possibility of a occult fracture Patient is stable for discharge at this time. External notes reviewed. Test results and diagnostic imaging interpreted. All diagnostic findings, discharge care, education and instructions provided Follow-up with PCP in 2 to 3 days Patient verbalized understanding and agreed to treatment plan Vital signs stable, afebrile, no acute distress noted Patient ambulatory with strong steady gait Advised to return precautions for any new or worsening symptoms, return to ER immediately for re-evaluation Patient is aware that the purpose of this visit was for an acute medical emergency requiring emergent stabilization. Chronic conditions, including malignancies have not been ruled out. Patient is instructed to follow up with PCP as directed and discharge instructions for continued care and workup. If unable to arrange follow-up, patient is to return to the emergency department for reassessment. Patient (parent or legal guardian if applicable) was given verbal and written discharge instructions and acknowledges understanding. Time of 1ST Reevaluation: 13:05 Reevaluation 1ST: Improved Patient Education/Counseling: Diagnosis, Treatment Family Education/Counseling: Diagnosis, Treatment Departure 1 Departure Time of Disposition: 13:06 Impression: Primary Impression: Rib pain Disposition: HOME / SELF CARE / HOMELESS Condition: Stable e-Prescriptions Lidocaine (LIDODERM 5% TOPICAL PATCH) 1 Patch Ph 1 PATCH TOP DAILY for 30 Days, #30 PATCH 0 Refills Prov: APOLLO MONTES DE OCA DRUG COORDINATOR 07/15/24 Critical Care Note Critical Care Time?: No Stability Stability form required: No Heart Score Heart Score: Heart Score Response (Comments) Value History N/A 0 EKG N/A 0 Age N/A 0 Risk Factors N/A 0 Troponin N/A 0 Total 0 APOLLO MONTES DE OCA NP Jul 15, 2024 12:00
--- NOTE | 2024-07-15 12:57 | DVH ---
Procedure: XY R RIB XRAY 07/15/2024 12:37 PM Indication: fall Comparison: None TECHNIQUE: AP of the chest 4 views of the right ribcage FINDINGS: Medical devices: AICD wires noted extending of the right cardiac chambers. Cardiomediastinal: The heart is normal in size. Pulmonary vasculature is within normal limits. Median sternotomy wires and mediastinal vascular clips are seen. Lungs: No focal pulmonary opacity is seen. The costophrenic angles are clear. No pneumothorax. Bones/soft tissues: There is deformity of the posterior aspect of the 10th rib reflecting an age inde terminate fracture. IMPRESSION: 1. Age-indeterminate, probably old healed fracture of the posterior 10th rib. Correlate with point t enderness. 2. No acute cardiopulmonary disease.
[2024-07-15] MEDS ORDERED: LIDO5DIS21 TOP (13:07)
== END 2024-07-15 13:07 | disposition home or self-care (01) ==
LOC: ER 10:46
DX: R07.81 Pleurodynia (principal); I25.10 Atherosclerotic heart disease of native coronary artery without angina pectoris; E11.9 Type 2 diabetes mellitus without complications; E78.5 Hyperlipidemia, unspecified; Z95.1 Presence of aortocoronary bypass graft; Z95.0 Presence of cardiac pacemaker; Z87.440 Personal history of urinary (tract) infections; Z88.7 Allergy status to serum and vaccine; Z98.51 Tubal ligation status; Z87.442 Personal history of urinary calculi; Z88.5 Allergy status to narcotic agent; Z88.1 Allergy status to other antibiotic agents; Z79.82 Long term (current) use of aspirin; Z79.84 Long term (current) use of oral hypoglycemic drugs; Z79.899 Other long term (current) drug therapy; Z88.0 Allergy status to penicillin; W01.0XXA Fall on same level from slipping, tripping and stumbling without subsequent striking against object, initial encounter; Y93.89 Activity, other specified; Y92.89 Other specified places as the place of occurrence of the external cause; Y99.8 Other external cause status
CPT/HCPCS: 71101; 82947; 82962

== ENCOUNTER 2024-07-26 14:05 | Emergency (ER) | payer SELFPAY ==
[~2024-07-26] VITALS: Ht 165.1 cm; Wt 55.3 kg
[~2024-07-26 14:05] MED LIST changes: +LIDO5DIS21 TOP
--- NOTE | 2024-07-26 14:32 | ED.PDOC ---
Musculoskeletal HPI Comments 63 year old female presents to the ED with a chief complaint of LT foot pain onset 1 week. Patient has a past medical history of HTN, DM, HLD, CAD. She noticed a wound on LT foot, great toe and pain has worsen. She states it is tender to touch, swelling radiates to ankle, warm to touch and painful. Denies trauma, injury, nausea, vomiting, diarrhea, chest pain, shortness of breath, headache, numbness/tingling of extremities. No other symptoms or modifying factors present at this time. 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) Amoxicillin (Verified Allergy, Mild, VOMITING, 03/29/13) Home Meds Active Scripts Lidocaine (LIDODERM 5% TOPICAL PATCH) 1 Patch Ph, 1 PATCH TOP DAILY for 30 Days, #30 PATCH 0 Refills Prov:APOLLO MONTES DE OCA STUD SHEEP FARMER 07/15/24 Reported Medications Insulin Regular (Human) (Humulin R) 1 Ml Inj, 1 ML IJ, INJ 10/05/15 Aspirin (Aspirin) 120 Mg Sup, 160 MG RE DAILY 01/09/14 Glipizide (Glipizide) 5 Mg Tab, 1 TAB PO DAILY, #90 TAB 3 Refills 01/09/14 Metoprolol Succinate (Toprol Xl) 25 Mg Tab, 25 MG PO DAILY, TAB 11/12/13 Simvastatin (Simvastatin) 20 Mg Tab, 20 MG PO DAILY for 30 Days 11/12/13 [Regular Insulin] No Conflict Check 12/17/10 Information Source: Patient Mode of Arrival: Ambulatory Location: Left Extremity Location: Foot, Great Toe Timing: Weeks Prehospital treatment: None Severity: Moderate Able to Move Extremity: Yes Bear Weight: Limited Pain: Moderate Onset of Symptoms: Spontaneous Symptoms: Swelling, Pain, Erythema, Warmth DVT Risk Factors: NONE Associated signs and symptoms: Foot pain Past Medical History PAST MEDICAL HISTORY: CAD, DM, Gallstones, High Lipids, Kidney Stones, UTI'S Surgical History: BTL, CABG, Pacemaker, PTCA FIRE RANGE TECHNICIAN History: No Pertinent FIRE RANGE TECHNICIAN History Family History Family History: Family hx of heart bar[place] Social History Smoker: Non-Smoker Alcohol: Denies ETOH Use Drugs: Denies Drug Use Lives In: Home Constitutional: denies: chills, diaphoresis, fatigue, fever, malaise, sweats, weakness, others EENTM: denies: blurred vision, double vision, ear bleeding, ear discharge, ear drainage, ear pain, ear ringing, eye pain, eye redness, hearing loss, mouth pain, mouth swelling, nasal discharge, nose bleeding, nose congestion, nose pain, photophobia, tearing, throat pain, throat swelling, voice changes, others Respiratory: denies: cough, hemoptysis, orthopnea, SOB at rest, shortness of breath, SOB with excertion, stridor, wheezing, others Cardiovascular: denies: chest pain, dizzy spells, diaphoresis, Dyspnea on exertion, edema, irregular heart beat, left arm pain, lightheadedness, palpitations, PND, syncope, others Gastrointestinal: denies: abdomen distended, abdominal pain, blood streaked bowels, constipated, diarrhea, dysphagia, difficulty swallowing, hematemesis, melena, nausea, poor appetite, poor fluid intake, rectal bleeding, rectal pain, vomiting, others Genitourinary: denies: abnormal vagina bleeding, burning, dyspareunia, dysuria, flank pain, frequency, hematuria, incontinence, pain, , vagina discharge, urgency, others Neurological: denies: dizziness, fainting, headache, left sided numbness, left sided weakness, numbness, paresthesia, pre-existing deficit, right sided n umbness, right sided weakness, seizure, speech problems, tingling, tremors, weakness, others Musculoskeletal: reports: others (LT big toe with erythema, swelling, drainage ); denies: back pain, gout, joint pain, joint swelling, muscle pain, muscle stiffness, neck pain Integumetry: denies: bruises, change in color, change in hair/nails, dryness, laceration, lesions, lumps, rash, wounds, others Allergic/Immunocompromised: denies: Difficulty Healing, Frequent Infections, Hives, Itching, others Hematologic/Lymphatic: denies: anemia, blood clots, easy bleeding, easy bruising, swollen glands, others Endocrine: denies: excessive hunger, excessive sweating, excessive thirst, excessive urination, flushing, intolerance to cold, intolerance to heat, unexplained weight gain, unexplained weight loss, others Psychiatric: denies: anxiety, bipolar disorder, depression, hopeless, panic disorder, schizophrenia, sleepless, suicidal, others All Other Systems: Reviewed and Negative Physical Exam General Appearance: No Apparent Distress, Normal HEENT: Normal ENT Inspection, Pharynx Normal, TMs Normal Neck: Full Range of Motion, Non-Tender, Normal, Normal Inspection Respiratory: Chest Non-Tender, Lungs Clear, No Accessory Muscle Use, No Respiratory Distress, Normal Breath Sounds Cardiovascular: No Edema, No JVD, No Murmur, No Gallop, Normal Peripheral Pulses, Regular Rate/Rhythm Breast Exam: Deferred Gastrointestinal: No Organomegaly, Non Tender, No Pulsatile Mass, Normal Bowel Sounds, Soft Genitalia: Deferred Pelvic: Deferred Rectal: Deferred Extremities: No calf tenderness, Normal capillary refill, Normal inspection, Normal range of motion, No pedal edema, Swelling (LT foot ), Tender (LT foot with erythema ) Musculoskeletal : Apperance: Normal Neurologic: Alert, cloth picker II-XII nml as Tested, No Motor Deficits, Normal Affect, Normal Mood, No Sensory Deficits Cerebellar Function: Normal Reflexes: Normal Skin: Dry, Normal Color, Wounds (LT foot, swollen, tender, warm to touch, 1 cm wound noted to LT big toe ) Lymphatic: No Adenopathy Was a procedure done? Was a procedure done?: No Differential Diagnosis EXT Differential Diagnosis: Cellulitis, Fracture, Sprain, Septic, Arthritis X-Ray, Labs, Meds, VS Vital Signs Date Time Temp Pulse Resp B/P (MAP) Pulse Ox O2 Delivery O2 Flow Rate FiO2 07/26/24 15:46 98.6 95 16 123/65 (84) 100 98.6 07/26/24 14:38 99.2 97 16 144/94 (111) 98 Lab Test 07/26/24 14:47 07/26/24 14:25 Range/Units White Blood Count 7.3 4.4-10.8 10^3/uL Red Blood Count 4.24 4.0-5.20 10^6/uL Hemoglobin 12.6 12.2-16.2 g/dL Hematocrit 38.2 36.0-46.0 % Mean Corpuscular Volume 90.1 80.0-100.0 fL Mean Corpuscular Hemoglobin 29.6 28.0-32.0 pg Mean Corpuscular Hemoglobin Concent 32.9 32.0-36.0 g/dL Red Cell Distribution Width 13.2 11.8-14.3 % Platelet Count 441 140-450 10^3/uL Mean Platelet Volume 7.9 6.9-10.8 fL Neutrophils (%) (Auto) 70.1 37.0-80.0 % Lymphocytes (%) (Auto) 21.7 10.0-50.0 % Monocytes (%) (Auto) 6.6 0.0-12.0 % Eosinophils (%) (Auto) 0.6 0.0-7.0 % Basophils (%) (Auto) 1.0 0.0-2.0 % Neutrophils # (Auto) 5.1 1.6-8.6 10 ^3/uL Lymphocytes # (Auto) 1.6 0.4-5.4 10 ^3/uL Monocytes # (Auto) 0.5 0-1.3 10 ^3/uL Eosinophils # (Auto) 0 0-0.8 10 ^3/uL Basophils # (Auto) 0.1 0-0.2 10 ^3/uL Nucleated Red Blood Cells 0.1 % Sodium Level 131 L 136-145 mmol/L Potassium Level 5.6 *H 3.5-5.1 mmol/L Chloride Level 100 98-107 mmol/L Carbon Dioxide Level 20 20-31 mmol/L Anion Gap 11 5-15 Blood Urea Nitrogen 25 H 9-23 mg/dL Creatinine 1.31 H 0.550-1.02 mg/dL Glomerular Filtration Rate Calc 46 >90 mL/min BUN/Creatinine Ratio 19.1 10.0-20.0 Serum Glucose 393 H 74-106 mg/dL Lactic Acid Level 2.2 *H 0.4-2.0 mmol/L Calcium Level 10.5 H 8.7-10.4 mg/dL Total Bilirubin 0.2 0.2-1.0 mg/dL Aspartate Amino Transferase (AST) 20 13-40 U/L Alanine Aminotransferase (ALT) 11 7-40 U/L Alkaline Phosphatase 110 46-116 U/L Total Protein 7.3 5.7-8.2 g/dL Albumin 4.2 3.2-4.8 g/dL POC Glucose 316 H 70-106 mg/dl [facility] [id number] [facility] [address] Ph: [phone] DIAGNOSTIC IMAGING Diagnostic Imaging Report : [id number] Signed PATIENT: LUPE CAMPBELL AACCT: [id number] UNIT: [id number] : 1960 LOC: ER ROOM / BED: / AGE / SEX: 63 / F ADM STATUS: REG ER SERVICE 1428 ORDERING PHYSICIAN: HAVEN ZARCO MD PROCEDURE(s): LFTCT - CT L FOOT WO CONTRAST REASON: osteo? ORDER NUMBER(s): [id number], ACCESSION NUMBER(s): [id number] Procedure: CT CT L FOOT WO CONTRAST 07/26/2024 02:32 PM Indication: osteo Comparison Study: None. Technique: Axial images of the left foot were obtained and reformatted in coronal and sagittal planes. All CT scans at this medical facility are performed using dose modulation techniques as appropriate to a performed exam including the following: Automated exposure control was utilized; adjustment of the MA and/or KV according to patient size; and use of iterative reconstruction technique. CT Dose: CTDI volume is 7.75 mGy. Dose-length product is 185.65 mGy*cm FINDINGS: Bones: No acute fracture or dislocation. Joint spaces are maintained. Soft tissues: Mild dorsal subcutaneous edema. Moderate diffuse atherosclerotic disease. IMPRESSION: 1. No acute osseous abnormality. 2. Peripheral arterial disease. 3. Mild dorsal subcutaneous edema. ATED BY: SIMI MARCELO MD DICTATED DATE/TIME: 07/26/241510 SIGNED BY: SIMI MARCELO MD SIGNED DATE/TIME: 07/26/241510 CC: X-Ray, Labs, Meds, VS Comment This pleasant and well-appearing 63-year-old female presents secondary to an ulcer to her right 1st toe. He was erythematous. Patient is diabetic but has intact sensation. She was concerned she may have the bone infected. She was no other findings such as tracking,/thrombophlebitis. Denies fever, chills, sweats, nausea or vomiting. She was increased pain with ambulation or palpation of the area. Otherwise, she had no palliative provocative factors. CT scan does not show osteomyelitis but only superficial edema to the skin. Her labs were benign. As such, the patient will be discharged home with a prescription for Augmentin. The extended spectrum antibiotics secondary to the patient being diabetic. She was asked to follow up with the PCP in next 1-2 days or return to the ER for new/worse/worsening symptoms. She was given 1 L of IV hydration and 1 dose of vancomycin in the ER prior to discharge. Time of 1ST Reevaluation: 14:49 Reevaluation 1ST: Unchanged Patient Education/Counseling: Diagnosis, Treatment, Prognosis Family Education/Counseling: No Family Present Additional Information The following tests were ordered, and results were reviewed by me: CT L FOOT WO CONTRAST, CBC, CMP, LA W/ REFLEX, WOUND CULTURE W/ GS I reviewed and agreed with the following test results read by other providers: CT L FOOT WO CONTRAST I discussed treatment and results with medical personnel and patient Departure 1 Departure Time of Disposition: 15:59 Impression: Primary Impression: Diabetes mellitus Additional Impression: Foot ulcer due to secondary DM Disposition: 01 HOME / SELF CARE / HOMELESS Critical Care Note Critical Care Time?: No Stability Stability form required: No Heart Score Heart Score: Heart Score Response (Comments) Value History N/A 0 EKG N/A 0 Age N/A 0 Risk Factors N/A 0 Troponin N/A 0 Total 0 I personally scribed for HAVEN ZARCO MD ([email or web address]) on 07/26/24 at 14:32. Electronically submitted by Angela Servin ([email or web address]). I personally scribed for HAVEN ZARCO MD ([email or web address]) on 07/26/24 at 14:33. Electronically submitted by Angela Servin ([email or web address]). I personally scribed for HAVEN ZARCO MD ([email or web address]) on 07/26/24 at 16:02. Electronically submitted by Angela Servin ([email or web address]). HAVEN ZARCO MD Jul 26, 2024 14:32
--- NOTE | 2024-07-26 15:13 | DVH ---
Procedure: CT CT L FOOT WO CONTRAST 07/26/2024 02:32 PM Indication: osteo Comparison Study: None. Technique: Axial images of the left foot were obtained and reformatted in coronal and sagittal planes . All CT scans at this medical facility are performed using dose modulation techniques as appropriate t o a performed exam including the following: Automated exposure control was utilized; adjustment of th e MA and/or KV according to patient size; and use of iterative reconstruction technique. CT Dose: CTDI volume is 7.75 mGy. Dose-length product is 185.65 mGy*cm FINDINGS: Bones: No acute fracture or dislocation. Joint spaces are maintained. Soft tissues: Mild dorsal subcutaneous edema. Moderate diffuse atherosclerotic disease. IMPRESSION: 1. No acute osseous abnormality. 2. Peripheral arterial disease. 3. Mild dorsal subcutaneous edema.
[2024-07-26 15:32] LABS: Basophils # (auto) 0.1 10 ^3/uL (0-0.2); Eosinophils # (auto) 0 10 ^3/uL (0-0.8); Eosinophils % (auto) 0.6 % (0.0-7.0); Hematocrit 38.2 % (36.0-46.0); Hemoglobin 12.6 g/dL (12.2-16.2); Lymphocytes # (auto) 1.6 10 ^3/uL (0.4-5.4); Lymphocytes % (auto) 21.7 % (10.0-50.0); Mean Corpuscular Hemoglobin 29.6 pg (28.0-32.0); Mean Corpuscular Hgb Conc. 32.9 g/dL (32.0-36.0); Mean Corpuscular Volume 90.1 fL (80.0-100.0); Monocytes # (auto) 0.5 10 ^3/uL (0-1.3); Monocytes % (auto) 6.6 % (0.0-12.0); Neutrophils # (auto) 5.1 10 ^3/uL (1.6-8.6); Neutrophils % (auto) 70.1 % (37.0-80.0); Nucleated Red Blood Cells % 0.1 %; Platelet Count (auto) 441 10^3/uL (140-450); Red Blood Cells 4.24 10^6/uL (4.0-5.20); Red Cell Distribution Width 13.2 % (11.8-14.3); White Blood Cell 7.3 10^3/uL (4.4-10.8)
[2024-07-26 15:49] LABS: Alanine Aminotransferase 11 U/L (7-40); Albumin 4.2 g/dL (3.2-4.8); Alkaline Phosphatase 110 U/L (46-116); Anion Gap 11 (5-15); Aspartate Aminotransferase 20 U/L (13-40); BUN/Creatinine Ratio 19.1 (10.0-20.0); Carbon Dioxide 20 mmol/L (20-31); Chloride 100 mmol/L (98-107); Total Protein 7.3 g/dL (5.7-8.2)
[2024-07-26 15:55] LABS: Lactic Acid w/Reflex 2.2 mmol/L (0.4-2.0)
[2024-07-26 15:59] VITALS: PULSE 96; RESP 16; O2SAT 97
[2024-07-26 16:00] LABS: Bilirubin, Total 0.2 mg/dL (0.2-1.0); Blood Urea Nitrogen 25 mg/dL (9-23); Calcium 10.5 mg/dL (8.7-10.4); Glucose 393 mg/dL (74-106); Potassium 5.6 mmol/L (3.5-5.1); Sodium 131 mmol/L (136-145)
[2024-07-26] MEDS: SODIUM CHLORIDE 0.9% 1,000 ML IV ONE (16:39)
[2024-07-26] MEDS: VANCOMYCIN 1GM/250ML KIT 250 ML IV ONE (17:06)
[2024-07-26] MEDS: ALBUTEROL SULF 2.5 MG/0.5ML(0.5%) NEB SOLN NEB ONE (17:31)
[2024-07-26] MEDS ORDERED: AUG875T PO (18:51)
[2024-07-26 18:54] VITALS: BP 150/76; PULSE 99; RESP 16; TEMP 98.5; O2SAT 97
[2024-07-26] MEDS ORDERED: BACDST PO (18:54)
== END 2024-07-26 18:57 | disposition home or self-care (01) ==
LOC: ER 14:05
DX: E11.621 Type 2 diabetes mellitus with foot ulcer (principal); R60.0 Localized edema; E78.5 Hyperlipidemia, unspecified; I10 Essential (primary) hypertension; Z79.82 Long term (current) use of aspirin; Z79.84 Long term (current) use of oral hypoglycemic drugs; Z79.899 Other long term (current) drug therapy; Z87.440 Personal history of urinary (tract) infections; Z88.0 Allergy status to penicillin; Z88.5 Allergy status to narcotic agent; Z88.7 Allergy status to serum and vaccine; Z95.0 Presence of cardiac pacemaker; Z95.1 Presence of aortocoronary bypass graft; Z98.51 Tubal ligation status
CPT/HCPCS: 36415; 73700; 80053; 82962; 83605; 85025; 94640; 96365; 96366; 99285; J3370; J7030